=== PATIENT | male | born 1940 | race American Indian/Alaskan Native ===

== ENCOUNTER 2021-09-16 03:40 | Inpatient (IN) | payer MEDICAID, MEDICARE ==
--- NOTE | 2021-09-16 04:36 | Emergency Department Report ---
ED Chest Pain HPI - General Chief Complaint: Chest Pain Stated Complaint: CHEST PAIN Time Seen by Provider: 09/16/21 04:25 Source: patient Mode of arrival: Ambulatory Limitations: No Limitations - History of Present Illness Initial Comments: Chief complaint: Chest pain HPI: This is a 81-year-old male with history of hypertension and tobacco dependence who presents with chest pain right-sided. Hurts to cough. Hurts with inspiration. He has productive cough with sputum. He has had bilateral lower extremity swelling for quite some time. He is followed at [facility]. No known history of cardiac disease. Pain radiates to the right upper quadrant. MD Complaint: chest pain -: Gradual, days(s) (Yesterday) Onset: during rest Pain Location: right chest Pain Radiation: abdomen Severity: severe Severity scale (0 -10): 9 Quality: sharp Consistency: constant Worsens With: inspiration, other (Cough) Other Symptoms: other (Mild shortness of breath, bilateral lower extremity swelling) Treatments Prior to Arrival: other (Patient drove his private auto to the emergency department) - Related Data Home Medications Medication Instructions Recorded Confirmed Last Taken AtorvaSTATin [Lipitor] 20 mg PO QHS 09/16/21 09/16/21 09/15/21 Baclofen [Lioresal] 10 mg PO DAILY 09/16/21 09/16/21 09/15/21 Gabapentin 600 mg PO QHS 09/16/21 09/16/21 09/15/21 Gabapentin [Neurontin] 300 mg PO DAILY 09/16/21 09/16/21 09/15/21 Gabapentin [Neurontin] 600 mg PO QAM 09/16/21 09/16/21 09/15/21 hydroCHLOROthiazide [HCTZ] 25 mg PO QDAY 09/16/21 09/16/21 09/15/21 Allergies Allergy/AdvReac Type Severity Reaction Status Date / Time No Known Allergies Allergy Verified 09/16/21 04:48 Heart Score - HEART Score History: Slightly suspicious EKG: Non-specific Age: > 65 Risk factors: 1-2 risk factors Troponin: < normal limit HEART Score: 4 - EKG Read Time Time EKG Completed: 04:12 EKG Read Time: 04:15 - Critical Actions Critical Actions: 4-6 pts:12-16.6% risk of adverse cardiac event. Should be admitted ED Review of Systems ROS: Stated complaint: CHEST PAIN Other details as noted in HPI Comment: All other systems reviewed and negative Constitutional: denies: chills, fever, malaise Respiratory: cough, shortness of breath Cardiovascular: chest pain, edema Gastrointestinal: denies: abdominal pain, nausea, vomiting ED Past Medical Hx - Past Medical History Previous Medical History?: Yes Hx Hypertension: Yes - Surgical History Past Surgical History?: No - Family History Family history: other (Family history noncontributory to this presentation) - Social History Smoking Status: Current Every Day Smoker Substance Use Type: None - Medications Home Medications: Home Medications Medication Instructions Recorded Confirmed Last Taken Type AtorvaSTATin [Lipitor] 20 mg PO QHS 09/16/21 09/16/21 09/15/21 History Baclofen [Lioresal] 10 mg PO DAILY 09/16/21 09/16/21 09/15/21 History Gabapentin 600 mg PO QHS 09/16/21 09/16/21 09/15/21 History Gabapentin [Neurontin] 300 mg PO DAILY 09/16/21 09/16/21 09/15/21 History Gabapentin [Neurontin] 600 mg PO QAM 09/16/21 09/16/21 09/15/21 History hydroCHLOROthiazide [HCTZ] 25 mg PO QDAY 09/16/21 09/16/21 09/15/21 History ED Physical Exam - General Limitations: No Limitations General appearance: alert, in no apparent distress, other (Appears uncomfortable with coughing, no acute distress but appears in pain) - Head Head exam: Present: atraumatic, normocephalic - Eye Eye exam: Present: normal appearance - ENT ENT exam: Present: mucous membranes moist - Neck Neck exam: Present: normal inspection, full ROM - Respiratory Respiratory exam: Present: rales, rhonchi, decreased breath sounds. Absent: respiratory distress - Cardiovascular Cardiovascular Exam: Present: regular rate, irregular rhythm, normal heart sounds. Absent: systolic murmur, diastolic murmur, rubs, gallop - GI/Abdominal GI/Abdominal exam: Present: soft, normal bowel sounds. Absent: distended, tenderness, guarding, rebound - Rectal Rectal exam: Present: deferred - Extremities Exam Extremities exam: Present: pedal edema, other (4+ edema from knee to foot bilaterally) - Neurological Exam Neurological exam: Present: alert, oriented X3 - Psychiatric Psychiatric exam: Present: normal affect, normal mood - Skin Skin exam: Present: warm, dry, intact, normal color. Absent: rash ED Course Vital Signs 09/16/21 09/16/21 09/16/21 03:50 04:27 04:31 Temperature 98.4 F Pulse Rate 77 101 H Respiratory 16 18 10 L Rate Blood Pressure 95/51 Blood Pressure 129/91 [Right] O2 Sat by Pulse 98 89 Oximetry 09/16/21 09/16/21 09/16/21 04:42 04:45 05:01 Temperature Pulse Rate 77 89 86 Respiratory 17 18 19 Rate Blood Pressure 180/99 184/98 192/108 Blood Pressure 180/99 [Right] O2 Sat by Pulse 98 97 97 Oximetry 09/16/21 09/16/21 09/16/21 05:15 05:18 05:31 Temperature Pulse Rate 82 80 Respiratory 25 H 11 L 16 Rate Blood Pressure 199/100 183/101 Blood Pressure [Right] O2 Sat by Pulse 96 96 Oximetry 09/16/21 09/16/21 09/16/21 05:45 06:00 06:01 Temperature Pulse Rate 76 82 81 Respiratory 16 16 14 Rate Blood Pressure 179/94 169/101 Blood Pressure 179/94 199/100 [Right] O2 Sat by Pulse 96 96 96 Oximetry 09/16/21 09/16/21 09/16/21 06:15 06:31 06:45 Temperature Pulse Rate 77 72 80 Respiratory 15 15 14 Rate Blood Pressure 147/88 152/91 145/90 Blood Pressure [Right] O2 Sat by Pulse 96 95 96 Oximetry 09/16/21 09/16/21 09/16/21 07:01 07:15 07:31 Temperature Pulse Rate 83 80 88 Respiratory 15 15 16 Rate Blood Pressure 158/90 156/91 143/86 Blood Pressure [Right] O2 Sat by Pulse 96 93 93 Oximetry 09/16/21 09/16/21 09/16/21 07:57 08:01 08:15 Temperature Pulse Rate 73 76 70 Respiratory 25 H 14 13 Rate Blood Pressure 143/86 151/92 144/84 Blood Pressure [Right] O2 Sat by Pulse 92 97 97 Oximetry 09/16/21 09/16/21 09/16/21 08:31 08:45 09:01 Temperature Pulse Rate 77 67 67 Respiratory 13 14 14 Rate Blood Pressure 144/90 138/84 139/84 Blood Pressure [Right] O2 Sat by Pulse 98 98 97 Oximetry 09/16/21 09/16/21 09/16/21 09:15 09:31 09:45 Temperature Pulse Rate 71 72 71 Respiratory 16 12 16 Rate Blood Pressure 132/84 132/84 155/129 Blood Pressure [Right] O2 Sat by Pulse 97 97 93 Oximetry 09/16/21 09/16/21 09/16/21 09:56 10:01 10:15 Temperature 97.8 F Pulse Rate 67 81 Respiratory 14 15 Rate Blood Pressure 168/98 168/98 Blood Pressure [Right] O2 Sat by Pulse 97 Oximetry 09/16/21 09/16/21 09/16/21 10:31 10:45 11:01 Temperature Pulse Rate 64 66 69 Respiratory 13 12 13 Rate Blood Pressure 167/87 167/87 160/97 Blood Pressure [Right] O2 Sat by Pulse 97 97 97 Oximetry 09/16/21 09/16/21 09/16/21 11:11 11:21 11:55 Temperature 98.3 F Pulse Rate 73 107 H Respiratory 14 14 17 Rate Blood Pressure 160/97 160/97 184/101 Blood Pressure [Right] O2 Sat by Pulse 97 99 Oximetry 09/16/21 09/16/21 09/16/21 15:39 20:03 22:00 Temperature 98.7 F 100.1 F H Pulse Rate 83 91 H Respiratory 16 18 Rate Blood Pressure 155/94 124/79 Blood Pressure [Right] O2 Sat by Pulse 93 92 Oximetry 09/16/21 09/16/21 09/17/21 22:17 23:50 00:46 Temperature 99.8 F H Pulse Rate 80 80 Respiratory 20 Rate Blood Pressure 141/82 140/82 Blood Pressure [Right] O2 Sat by Pulse 96 91 Oximetry 09/17/21 09/17/21 09/17/21 03:47 07:57 09:59 Temperature 98.8 F 97.8 F Pulse Rate 70 Respiratory 18 18 Rate Blood Pressure 140/93 150/90 Blood Pressure [Right] O2 Sat by Pulse 93 94 Oximetry 09/17/21 09/17/21 09/17/21 10:00 10:18 10:38 Temperature 98.1 F Pulse Rate 101 H 76 Respiratory 18 Rate Blood Pressure 144/76 Blood Pressure [Right] O2 Sat by Pulse 96 Oximetry 09/17/21 09/17/21 09/17/21 14:38 15:37 19:23 Temperature 98.0 F 97.9 F Pulse Rate 68 56 L Respiratory 17 20 Rate Blood Pressure 148/77 127/80 Blood Pressure [Right] O2 Sat by Pulse 95 Oximetry 09/17/21 09/17/21 09/17/21 19:47 21:44 22:00 Temperature Pulse Rate 66 60 Respiratory Rate Blood Pressure Blood Pressure [Right] O2 Sat by Pulse 100 97 Oximetry 09/17/21 09/17/21 09/18/21 23:44 23:46 05:08 Temperature 97.5 F L 98.0 F Pulse Rate 70 70 58 L Respiratory 20 18 Rate Blood Pressure 143/78 143/78 129/76 Blood Pressure [Right] O2 Sat by Pulse 93 98 Oximetry 09/18/21 09/18/21 09/18/21 05:31 07:47 09:04 Temperature 98.7 F Pulse Rate 58 L 56 L Respiratory 16 Rate Blood Pressure 129/76 Blood Pressure 134/78 [Right] O2 Sat by Pulse 100 94 Oximetry 09/18/21 09/18/21 09/18/21 10:00 11:40 12:50 Temperature 98.1 F Pulse Rate 70 62 100 H Respiratory 18 Rate Blood Pressure 134/80 134/90 Blood Pressure [Right] O2 Sat by Pulse 98 91 Oximetry 09/18/21 09/18/21 09/18/21 12:51 15:43 19:18 Temperature 98.7 F Pulse Rate 62 70 71 Respiratory 18 Rate Blood Pressure 125/74 Blood Pressure [Right] O2 Sat by Pulse 93 Oximetry 09/18/21 09/18/21 09/18/21 19:24 22:00 23:19 Temperature 98.7 F 98.5 F Pulse Rate 70 61 Respiratory 16 16 Rate Blood Pressure 146/77 136/82 Blood Pressure [Right] O2 Sat by Pulse 94 95 95 Oximetry 09/19/21 09/19/21 00:30 05:52 Temperature 98.2 F Pulse Rate 63 64 Respiratory 18 Rate Blood Pressure 136/82 Blood Pressure 138/80 [Right] O2 Sat by Pulse 3 L Oximetry ED Medical Decision Making - Lab Data Result diagrams: 09/18/21 05:38 09/17/21 05:06 - EKG Data -: EKG Interpreted by Wi - EKG Data 09/16/21 04:35 EKG obtained 0 412 EKG interpreted by me Normal sinus rhythm rate 75 bpm PVCs present left axis deviation no ST elevation nonischemic T wave pattern - Radiology Data Radiology results: report reviewed Patient Name: CARLYN GUZMAN Gender: Male Date of : 1940 Home Phone: Referring Provider: JUAN MANUEL SCOTT Organization: [facility] Accession Number: [id number] Requested Date: September 16, 2021 04:31 Report Status: Final Requested Procedure: 1 Procedure Description: XR chest 1V ap Modality: XR Findings Reporting MD: Arie Zelaya Dictation Time: September 16, 2021 03:56 Esthetician And Manager Medical Spa: Not available Astro Technician Date: CHEST 1 VIEW INDICATION / CLINICAL INFORMATION: Chest Pain cough. COMPARISON: None available. FINDINGS: SUPPORT DEVICES: None. HEART / MEDIASTINUM: Heart size normal. Moderate ectasia of the thoracic aorta demonstrated. LUNGS / PLEURA: Airspace opacities right cardiophrenic angle. Lungs otherwise clear. No pneumothorax. ADDITIONAL FINDINGS: No significant additional findings. IMPRESSION: 1. Airspace opacity right cardiophrenic angle. Atelectasis and/or infection could be considered. Signer Name: Arie Zelaya II, MD Signed: 09/16/2021 3:56 AM Workstation Name: [id number] - Medical Decision Making This is a 81-year-old male with history of hypertension and tobacco use who presents with right pleuritic chest pain with cough. Chest radiograph confirms suspected pneumonia. Patient treated for community-acquired pneumonia with ceftriaxone azithromycin. Due to advanced age and comorbidities admitted to the hospital service. Heart score 4, do not suspect acute coronary syndrome. Patient has pleuritic chest pain with productive cough. Without significant leukocytosis and elevated D-dimer will rule out pulmonary embolism. Patient does have significant bilateral lower extremity swelling. Consideration congestive heart failure versus venous insufficiency. My colleague will determine appropriate disposition. Critical care attestation.: If time is entered above; I have spent that time in minutes in the direct care of this critically ill patient, excluding procedure time. ED Disposition Clinical Impression: Community acquired pneumonia, Acute pulmonary embolism Disposition: ADMITTED INPATIENT Is pt being admited?: No Does the pt Need Aspirin: No Condition: Stable
--- NOTE | 2021-09-16 05:00 | XRay Report ---
CHEST 1 VIEW INDICATION / CLINICAL INFORMATION: Chest Pain cough. COMPARISON: None available. FINDINGS: SUPPORT DEVICES: None. HEART / MEDIASTINUM: Heart size normal. Moderate ectasia of the thoracic aorta demonstrated. LUNGS / PLEURA: Airspace opacities right cardiophrenic angle. Lungs otherwise clear. No pneumothorax. ADDITIONAL FINDINGS: No significant additional findings. IMPRESSION: 1. Airspace opacity right cardiophrenic angle. Atelectasis and/or infection could be considered. Signer Name: Arie Zelaya II, MD Signed: 09/16/2021 4:56 AM Workstation Name: [id number]
[2021-09-16 05:21] LABS: Hematocrit 38.2 % (35.5-45.6); Hemoglobin 13.3 gm/dl (11.8-15.2); Mean Corpuscular HGB Conc 35 % (32-34); Mean Corpuscular Volume 88 fl (84-94); Platelet Count 214 K/mm3 (140-440); Red Blood Count 4.35 M/mm3 (3.65-5.03); Red Cell Distribution Width 14.5 % (13.2-15.2)
[2021-09-16] MEDS ORDERED: cefTRIAXone/NS 1 GM/50 ML 1 GM/50 ML BAG IV ONE (05:29)
[2021-09-16] MEDS ORDERED: AZITHROMYCIN/NS 500 MG/250 ML 500 MG/250 ML BAG IV ONE (05:29)
[2021-09-16] MEDS ORDERED: ACETAMINOPHEN 500 MG TAB PO ONE (05:32)
[2021-09-16 05:46] LABS: Alanine Aminotransferase 10 units/L (7-56); Albumin 3.8 g/dL (3.9-5); BUN/Creatinine Ratio 13; Blood Urea Nitrogen 14 mg/dL (9-20); Calcium 9.2 mg/dL (8.4-10.2); Hemolysis Index 5
[2021-09-16 06:26] LABS: Anisocytosis 1+; Basophils % (Manual) 0 % (0.0-1.8); Platelet Estimate Consistent w Auto; Total Cells Counted 100
--- NOTE | 2021-09-16 06:45 | Emergency Department Report ---
Blank Doc - Documentation Documentation: 0600-I assumed care from Dr. Lucero. CT angiogram is pending. 0645-CT angiogram was ordered. I did review the chart. Labs were noted. 0820-the radiologist called with a positive CT report. Patient has pulmonary emboli in the right mid and right lower lung mcnair along with the left upper lung field. None are central. There is also airspace disease concerning for pneumonia in the right lower lobe. There was no evidence of heart strain. This was the verbal report. We will recheck a room air saturation. Antibiotics have already been given. 0850-Case was discussed with the hospitalist. We agreed with admission. Patient has O2 saturations are 93% on room air which would constitute hypoxia. He has multiple PEs both right and left lung. There is concomitant pneumonia in the right lower lung. Due to the multiple issues and comorbid disease, we will proceed with admission. Heparin drip has been started.
--- NOTE | 2021-09-16 08:28 | Cat Scan Report ---
CTA CHEST WITH IV CONTRAST, 09/16/2021 INDICATION: Chest pain. TECHNIQUE: Axial CT images were obtained through the chest after injection of IV contrast. Coronal oblique 2-D reconstruction images were produced. 3 plane MIP reconstruction images were produced at an [employer] workstation. All CTs at this facility utilize dose reduction techniques including automated expos ure control, iterative reconstruction and weight based dosing when appropriate to reduce patient radi ation dose to as low as reasonable achievable. COMPARISON: Chest radiograph, 09/16/2021. No prior cross-sectional imaging is available for comparison. FINDINGS: Evaluation of the pulmonary arteries demonstrates multiple segmental and subsegmental filling defects extending to the right middle and right lower lobes. There are suspected subsegmental filling defect s also extending to the left upper lobe. No central filling defect is identified. The heart is normal in size. The thoracic aorta appears normal in caliber LUNGS: Evaluation of the lung parenchyma demonstrates patchy densities within the right lower lobe. T here is a background of emphysematous change. UPPER ABDOMEN: Limited imaging of the upper abdomen demonstrates several low-density lesions within t he liver, the largest of which measures 2.1 cm. There is a left renal cyst incompletely visualized me asuring at least 5.7 cm.. BONES AND SOFT TISSUES: No focal acute abnormality. IMPRESSION: 1. Evaluation is positive for pulmonary embolism involving the right middle and right lower lobes an d possibly the left upper lobe. 2. Patchy right lower lobe densities favored to represent pneumonia. 3. Low density hepatic lesions that are indeterminate on today's study. These may represent cysts. Critical findings of pulmonary embolism were discussed with Dr. Wright. CRITICAL RESULT: Time of Discovery (LOCAL GOVERNMENT LEGISLATOR/CDT): 7:15 AM Time of Communication (LOCAL GOVERNMENT LEGISLATOR/CDT): 7:23 AM Licensed Practitioner Receiving Report: Read-Back Performed: Yes. Signer Name: Bre Clemente MD Signed: 09/16/2021 8:23 AM Workstation Name: [email or web address]
[2021-09-16] MEDS ORDERED: HEPARIN 10,000 UNITS/10 ML VIAL IV PRN (08:51)
[2021-09-16] MEDS ORDERED: HEPARIN 10,000 UNITS/10 ML VIAL IV ONE (08:51)
[2021-09-16] MEDS ORDERED: ACETAMINOPHEN 325 MG TAB PO PRN ×2 (08:52)
[2021-09-16] MEDS ORDERED: NALOXONE 0.4 MG/1 ML INJ IV PRN (08:52)
[2021-09-16] MEDS ORDERED: NITROGLYCERIN 0.4 MG TAB SUBL SL PRN (08:52)
[2021-09-16] MEDS ORDERED: ALBUTEROL 2.5 MG/3 ML NEBU IH PRN (08:52)
[2021-09-16] MEDS ORDERED: MORPHINE 2 MG/1 ML INJ IV PRN (08:52)
[2021-09-16] MEDS ORDERED: traMADol 50 MG TAB PO PRN (08:52)
--- NOTE | 2021-09-16 08:59 | History and Physical Report ---
History of Present Illness Date of examination: 09/16/21 Date of admission: 09/16/21 Chief complaint: Chest pain History of present illness: This is a 81-year-old male with history of CHF, COPD, Severe arthritis, hypertension, Dementia with intermittent forgetfulness (according to the sister), Incontinence, and tobacco dependence who presents with chest pain right-sided. Hurts to cough. Hurts with inspiration. He has productive cough with sputum. He has had bilateral lower extremity swelling for quite some time. Most of the information is obtained from the ER physician most of the time I went to examine the patient he was beat sedated not sure if this is from medication although responsive to noxious stimuli. Did not exhibit severe shortness of breath or respiratory distress although the nurse reports that his surgery drops to the mid 80s when he is off oxygen support According to the family-He is followed at [facility] and his primary ca re physician is Dr. Flanagan Work-up in the ED found him to have "pulmonary emboli in the right mid and right lower lung mcnair along with the left upper lung field. None are central. There is also airspace disease concerning for pneumonia in the right lower lobe. There was no evidence of heart strain. This was the verbal report" Past History Past Medical History: COPD, heart failure, hypertension, hyperlipidemia, other (Dementia) Past Surgical History: No surgical history Social history: lives with family, full code Family history: no significant family history Medications and Allergies Allergies Allergy/AdvReac Type Severity Reaction Status Date / Time No Known Allergies Allergy Verified 09/16/21 04:48 Active Meds: Active Medications Acetaminophen (Acetaminophen 325 Mg Tab) 650 mg PO Q4H PRN PRN Reason: Pain MILD(1-3)/Fever >100.5/[place] Acetaminophen (Acetaminophen 325 Mg Tab) 650 mg PO Q6H PRN PRN Reason: Pain, Mild (1-3) Albuterol (Albuterol 2.5 Mg/3 Ml Nebu) 2.5 mg IH Q3HRT PRN PRN Reason: Shortness Of Breath Atorvastatin Calcium (Atorvastatin 40 Mg Tab) 40 mg PO QHS [facility] Baclofen (Baclofen 10 Mg Tab) 10 mg PO TID PRN PRN Reason: spasm Docusate Sodium (Docusate Sodium 100 Mg Cap) 100 mg PO BID [facility] Famotidine (Famotidine 20 Mg/2 Ml Inj) 20 mg IV BID [facility] Fluticasone Propionate (Fluticasone Propionate Nasal [place] 16 Gm) 100 mcg NS QDAY [facility] Heparin Sodium (Porcine) (Heparin 10,000 Units/10 Ml Vial) 5,400 unit 40 unit/kg (5400 unit) IV Q6H PRN PRN Reason: Anti-Xa Assay < 0.1 units/ml Hydrochlorothiazide (Hydrochlorothiazide 25 Mg Tab) 25 mg PO QDAY [facility] Heparin Sodium/Sodium Chloride (Heparin/ 0.45% Nacl-25,000 Unit/500 Ml) 25,000 unit in 500 mls @ 30 mls/hr IV TITR [facility]; Protocol Morphine Sulfate (Morphine 2 Mg/1 Ml Inj) 2 mg IV Q4H PRN PRN Reason: Pain, Moderate (4-6) Naloxone HCl (Naloxone 0.4 Mg/1 Ml Inj) 0.1 mg IV Q2MIN PRN PRN Reason: Res Rate </= 8 or 02 SAT < 92% Nitroglycerin (Nitroglycerin 0.4 Mg Tab Subl) 0.4 mg SL Q5M PRN PRN Reason: Chest Pain Ondansetron HCl (Ondansetron 4 Mg/2 Ml Inj) 4 mg IV Q8H PRN PRN Reason: Nausea And Vomiting Sodium Chloride (Sodium Chloride 0.9% 10 Ml Flush Syringe) 10 ml IV BID [facility] Sodium Chloride (Sodium Chloride 0.9% 10 Ml Flush Syringe) 10 ml IV PRN PRN PRN Reason: LINE FLUSH Sodium Chloride (Sodium Chloride 0.9% 10 Ml Flush Syringe) 10 ml IV PRN PRN PRN Reason: LINE FLUSH Tramadol HCl (Tramadol 50 Mg Tab) 50 mg PO Q6H PRN PRN Reason: Pain, Moderate (4-6) Review of Systems All systems: negative Cardiovascular: chest pain, shortness of breath, dyspnea on exertion Respiratory: cough, shortness of breath, dyspnea on exertion Exam - Physical Exam Narrative exam: VITAL SIGNS: Reviewed. GENERAL: The patient appears normally developed, appears sedated but responsive to verbal and noxious stimuli vital signs as documented. HEAD: No signs of head trauma. EYES: Pupils are equal. Extraocular motions intact. EARS: Hearing grossly intact. MOUTH: Oropharynx is normal. NECK: No adenopathy, no JVD. CHEST: Chest with clear breath sounds bilaterally. No wheezes, rales, or rhonchi. CARDIAC: Regular rate and rhythm. S1 and S2, without murmurs, gallops, or rubs. VASCULAR: No Edema. Peripheral pulses normal and equal in all extremities. ABDOMEN: Soft, non tender and non distended. No rebound or guarding, and no masses palpated. Bowel Sounds normal. MUSCULOSKELETAL: Good range of motion of all major joints. Extremities without clubbing, cyanosis or edema. NEUROLOGIC EXAM: Sedated, but responsive although could not verify orientation due to underlying dementia. Follows some command no focal sensory or strength deficits. PSYCHIATRIC: Mood unable to fully examine SKIN: detail exam as documented in skin assessment - Constitutional Vitals: Temp Pulse Resp BP Pulse Ox 98.4 F 82 16 199/100 96 09/16/21 03:50 09/16/21 06:00 09/16/21 06:00 09/16/21 06:00 09/16/21 06:00 HEART Score - HEART Score EKG: Non-specific Age: > 65 Risk factors: 1-2 risk factors Troponin: Troponin T < 0.010 ng/mL (0.00-0.029) 09/16/21 04:54 Troponin: < normal limit - Critical Actions Critical Actions: 4-6 pts:12-16.6% risk of adverse cardiac event. Should be admitted Results - Labs CBC & Chem 7: 09/16/21 09:34 09/16/21 09:34 Labs: Laboratory Last Values WBC 8.4 K/mm3 (4.5-11.0) 09/16/21 04:54 RBC 4.35 M/mm3 (3.65-5.03) 09/16/21 04:54 Hgb 13.3 gm/dl (11.8-15.2) 09/16/21 04:54 Hct 38.2 % (35.5-45.6) 09/16/21 04:54 MCV 88 fl (84-94) 09/16/21 04:54 MCH 31 pg (28-32) 09/16/21 04:54 MCHC 35 % (32-34) H 09/16/21 04:54 RDW 14.5 % (13.2-15.2) 09/16/21 04:54 Plt Count 214 K/mm3 (140-440) 09/16/21 04:54 Add Manual Diff Complete 09/16/21 04:54 Total Counted 100 09/16/21 04:54 Seg Neuts % (Manual) 59.0 % (40.0-70.0) 09/16/21 04:54 Band Neutrophils % 0 % 09/16/21 04:54 Lymphocytes % (Manual) 21.0 % (13.4-35.0) 09/16/21 04:54 Reactive Lymphs % (Man) 0 % 09/16/21 04:54 Monocytes % (Manual) 18.0 % (0.0-7.3) H 09/16/21 04:54 Eosinophils % (Manual) 2.0 % (0.0-4.3) 09/16/21 04:54 Basophils % (Manual) 0 % (0.0-1.8) 09/16/21 04:54 Metamyelocytes % 0 % 09/16/21 04:54 Myelocytes % 0 % 09/16/21 04:54 Promyelocytes % 0 % 09/16/21 04:54 Blast Cells % 0 % 09/16/21 04:54 Nucleated RBC % Not Reportable 09/16/21 04:54 Seg Neutrophils # Man 5.0 K/mm3 (1.8-7.7) 09/16/21 04:54 Band Neutrophils # 0.0 K/mm3 09/16/21 04:54 Lymphocytes # (Manual) 1.8 K/mm3 (1.2-5.4) 09/16/21 04:54 Abs React Lymphs (Man) 0.0 K/mm3 09/16/21 04:54 Monocytes # (Manual) 1.5 K/mm3 (0.0-0.8) H 09/16/21 04:54 Eosinophils # (Manual) 0.2 K/mm3 (0.0-0.4) 09/16/21 04:54 Basophils # (Manual) 0.0 K/mm3 (0.0-0.1) 09/16/21 04:54 Metamyelocytes # 0.0 K/mm3 09/16/21 04:54 Myelocytes # 0.0 K/mm3 09/16/21 04:54 Promyelocytes # 0.0 K/mm3 09/16/21 04:54 Blast Cells # 0.0 K/mm3 09/16/21 04:54 WBC Morphology Not Reportable 09/16/21 04:54 Hypersegmented Neuts Not Reportable 09/16/21 04:54 Hyposegmented Neuts Not Reportable 09/16/21 04:54 Hypogranular Neuts Not Reportable 09/16/21 04:54 Smudge Cells Not Reportable 09/16/21 04:54 Toxic Granulation Not Reportable 09/16/21 04:54 Toxic Vacuolation Not Reportable 09/16/21 04:54 Dohle Bodies Not Reportable 09/16/21 04:54 Pelger-Huet Anomaly Not Reportable 09/16/21 04:54 Nader Rods Not Reportable 09/16/21 04:54 Platelet Estimate Consistent w auto 09/16/21 04:54 Clumped Platelets Not Reportable 09/16/21 04:54 Plt Clumps, EDTA Not Reportable 09/16/21 04:54 Large Platelets Not Reportable 09/16/21 04:54 Giant Platelets Not Reportable 09/16/21 04:54 Platelet Satelliting Not Reportable 09/16/21 04:54 Plt Morphology Comment Not Reportable 09/16/21 04:54 RBC Morphology Not Reportable 09/16/21 04:54 Dimorphic RBCs Not Reportable 09/16/21 04:54 Polychromasia Not Reportable 09/16/21 04:54 Hypochromasia Not Reportable 09/16/21 04:54 Poikilocytosis Not Reportable 09/16/21 04:54 Anisocytosis 1+ 09/16/21 04:54 Microcytosis Not Reportable 09/16/21 04:54 Macrocytosis Not Reportable 09/16/21 04:54 Spherocytes Not Reportable 09/16/21 04:54 Pappenheimer Bodies Not Reportable 09/16/21 04:54 Sickle Cells Not Reportable 09/16/21 04:54 Target Cells Not Reportable 09/16/21 04:54 Tear Drop Cells Not Reportable 09/16/21 04:54 Ovalocytes Not Reportable 09/16/21 04:54 Helmet Cells Not Reportable 09/16/21 04:54 Vazquez-Rains Bodies Not Reportable 09/16/21 04:54 Hanahan Rings Not Reportable 09/16/21 04:54 [place] Cells Not Reportable 09/16/21 04:54 Bite Cells Not Reportable 09/16/21 04:54 Crenated Cell Not Reportable 09/16/21 04:54 Elliptocytes Not Reportable 09/16/21 04:54 Acanthocytes (Spur) Not Reportable 09/16/21 04:54 Rouleaux Not Reportable 09/16/21 04:54 Hemoglobin C Crystals Not Reportable 09/16/21 04:54 Schistocytes Not Reportable 09/16/21 04:54 Malaria parasites Not Reportable 09/16/21 04:54 Raymond Bodies Not Reportable 09/16/21 04:54 Hem Pathologist Commnt No 09/16/21 04:54 D-Dimer 2145.76 ng/mlDDU (0-234) H 09/16/21 04:54 Sodium 136 mmol/L (137-145) L 09/16/21 04:54 Potassium 3.9 mmol/L (3.6-5.0) 09/16/21 04:54 Chloride 94.7 mmol/L (98-107) L 09/16/21 04:54 Carbon Dioxide 28 mmol/L (22-30) 09/16/21 04:54 Anion Gap 17 mmol/L 09/16/21 04:54 BUN 14 mg/dL (9-20) 09/16/21 04:54 Creatinine 1.1 mg/dL (0.8-1.3) 09/16/21 04:54 Estimated GFR > 60 ml/min 09/16/21 04:54 BUN/Creatinine Ratio 13 % 09/16/21 04:54 Glucose 120 mg/dL (75-100) H 09/16/21 04:54 Calcium 9.2 mg/dL (8.4-10.2) 09/16/21 04:54 Total Bilirubin 0.40 mg/dL (0.1-1.2) 09/16/21 04:54 AST 14 units/L (5-40) 09/16/21 04:54 ALT 10 units/L (7-56) 09/16/21 04:54 Alkaline Phosphatase 93 units/L (35-129) 09/16/21 04:54 Troponin T < 0.010 ng/mL (0.00-0.029) 09/16/21 04:54 NT-Pro-B Natriuret Pep 177.4 pg/mL (0-900) 09/16/21 04:54 Total Protein 7.4 g/dL (6.3-8.2) 09/16/21 04:54 Albumin 3.8 g/dL (3.9-5) L 09/16/21 04:54 Albumin/Globulin Ratio 1.1 % 09/16/21 04:54 Assessment and Plan Assessment and plan: This is a 81-year-old male with history of CHF, COPD, Severe arthritis, hypertension, Dementia with intermittent forgetfulness (according to the sister), Incontinence, and tobacco dependence who presents with chest pain right-sided. Hurts to cough. Hurts with inspiration. He has productive cough with sputum. He has had bilateral lower extremity swelling for quite some time. Most of the information is obtained from the ER physician most of the time I went to examine the patient he was beat sedated not sure if this is from m edication although responsive to noxious stimuli. Did not exhibit severe shortness of breath or respiratory distress although the nurse reports that his surgery drops to the mid 80s when he is off oxygen support According to the family-He is followed at [facility] and his primary care physician is Dr. Flanagan Work-up in the ED found him to have "pulmonary emboli in the right mid and right lower lung mcnair along with the left upper lung field. None are central. There is also airspace disease concerning for pneumonia in the right lower lobe. There was no evidence of heart strain. This was the verbal report" Assessment Acute pulmonary emboli on the right mid and lower lung mcnair and left upper lung mcnair Hypoxic respiratory failure Congestive heart failure likely systolic chronic in nature Hypertension urgency Dementia with intermittent forgiveness chronic Severe arthritis Dementia with worsening acute encephalopathy above his baseline likely metabolic COPD with mild exacerbation secondary to pulmonary embolism Possible right lower lobe pneumonia Systemic inflammatory response syndrome Hyponatremia Plan Admit to telemetry Discussed with the ED physician patient has been started on heparin drip and on discharge probably can be converted to Eliquis Obtain cardiology and pulmonary consult Continue oxygen therapy We will try to obtain home medications. We will give patient a trial of Lasix 20 mg IV until patient seen by rubber stamp assembler I discussed with the sister the patient lives with the sister and also with an "uncle." Asbestos time in between has not had any recent long distance travel. We will check Doppler of bilateral lower extremity We will obtain an echocardiogram Based on clinical findings and improvement of respiratory status discharge can be planned DVT and GI prophylax Advance Directives: Yes Plan of care discussed with patient/family: Yes
[2021-09-16] MEDS ORDERED: ONDANSETRON 4 MG/2 ML INJ IV PRN (09:00)
[2021-09-16 09:47] LABS: Basophils % (Auto) 0.4 % (0.0-1.8); Eosinophils # (Auto) 0.1 K/mm3 (0.0-0.4); Eosinophils % (Auto) 0.9 % (0.0-4.3); Hematocrit 37.9 % (35.5-45.6); Hemoglobin 13.1 gm/dl (11.8-15.2); Lymphocytes # (Auto) 1.4 K/mm3 (1.2-5.4); Lymphocytes % (Auto) 16.3 % (13.4-35.0); Mean Corpuscular HGB Conc 35 % (32-34); Mean Corpuscular Volume 88 fl (84-94); Monocytes # (Auto) 1.2 K/mm3 (0.0-0.8); Monocytes % (Auto) 13.9 % (0.0-7.3); Platelet Count 200 K/mm3 (140-440); Red Blood Count 4.29 M/mm3 (3.65-5.03); Red Cell Distribution Width 14.5 % (13.2-15.2)
[2021-09-16] MEDS: HEPARIN/ 0.45% NACL DRIP 25,000 UNIT/500 ML BAG IV SCH (09:51)
[2021-09-16 09:59] LABS: INR 1.02 (0.87-1.13)
[2021-09-16 10:07] LABS: BUN/Creatinine Ratio 12; Blood Urea Nitrogen 12 mg/dL (9-20); Calcium 9.4 mg/dL (8.4-10.2); Hemolysis Index 3
[2021-09-16 10:57] LABS: Partial Thromboplastin Time 182.6 Sec. (24.2-36.6)
[2021-09-16] MEDS: FLUTICASONE PROPIONATE NASAL SPRAY 16 GM NS SCH (11:23)
[2021-09-16] MEDS: FAMOTIDINE 20 MG/2 ML INJ IV SCH ×2 (11:24→22:45)
[2021-09-16] MEDS: DOCUSATE SODIUM 100 MG CAP PO SCH ×2 (11:24→22:45)
[2021-09-16] MEDS: hydroCHLOROthiazide 25 MG TAB PO SCH (11:24)
--- NOTE | 2021-09-16 14:39 | Consultation ---
History of Present Illness Consult date: 09/16/21 Reason for consult: chest pain History of present illness: Chest pain History of present illness: This is a 81-year-old male with history of CHF, COPD, Severe arthritis, hypertension, Dementia with intermittent forgetfulness (according to the sister), Incontinence, and tobacco dependence who presents with chest pain right-sided. Hurts to cough. Hurts with inspiration. He has productive cough with sputum. He has had bilateral lower extremity swelling for quite some time. Most of the information is obtained from the ER physician most of the time I went to examine the patient he was beat sedated not sure if this is from medication although responsive to noxious stimuli. Did not exhibit severe shortness of breath or respiratory distress although the nurse reports that his surgery drops to the mid 80s when he is off oxygen support According to the family-He is followed at [facility] and his primary care physician is Dr. Flanagan Work-up in the ED found him to have "pulmonary emboli in the right mid and right lower lung mcnair along with the left upper lung field. None are central. There is also airspace disease concerning for pneumonia in the right lower lobe. There was no evidence of heart strain. This was the verbal report" Past History Past Medical History: COPD, heart failure, hypertension, hyperlipidemia, other (Dementia) Past Surgical History: No surgical history Social history: lives with family, full code Family history: no significant family history Medications and Allergies Allergies Allergy/AdvReac Type Severity Reaction Status Date / Time No Known Allergies Allergy Verified 09/16/21 04:48 Home Medications Medication Instructions Recorded Confirmed Last Taken Type AtorvaSTATin [Lipitor] 20 mg PO QHS 09/16/21 09/16/21 09/15/21 History Baclofen [Lioresal] 10 mg PO DAILY 09/16/21 09/16/21 09/15/21 History Gabapentin 600 mg PO QHS 09/16/21 09/16/21 09/15/21 History Gabapentin [Neurontin] 300 mg PO DAILY 09/16/21 09/16/21 09/15/21 History Gabapentin [Neurontin] 600 mg PO QAM 09/16/21 09/16/21 09/15/21 History hydroCHLOROthiazide [HCTZ] 25 mg PO QDAY 09/16/21 09/16/21 09/15/21 History Active Meds: Active Medications Acetaminophen (Acetaminophen 325 Mg Tab) 650 mg PO Q6H PRN PRN Reason: Pain, Mild (1-3) Albuterol (Albuterol 2.5 Mg/3 Ml Nebu) 2.5 mg IH Q3HRT PRN PRN Reason: Shortness Of Breath Amlodipine Besylate (Amlodipine 5 Mg Tab) 5 mg PO QDAY [facility] Atorvastatin Calcium (Atorvastatin 40 Mg Tab) 40 mg PO QHS [facility] Baclofen (Baclofen 10 Mg Tab) 10 mg PO TID PRN PRN Reason: spasm Diltiazem HCl (Diltiazem 60 Mg Tab) 60 mg PO Q6HR [facility] Docusate Sodium (Docusate Sodium 100 Mg Cap) 100 mg PO BID [facility] Last Admin: 09/16/21 11:24 Dose: 100 mg Famotidine (Famotidine 20 Mg/2 Ml Inj) 20 mg IV BID [facility] Last Admin: 09/16/21 11:24 Dose: 20 mg Fluticasone Propionate (Fluticasone Propionate Nasal [place] 16 Gm) 100 mcg NS QDAY [facility] Last Admin: 09/16/21 11:23 Dose: 100 mcg Hydrochlorothiazide (Hydrochlorothiazide 25 Mg Tab) 25 mg PO QDAY [facility] Last Admin: 09/16/21 11:24 Dose: 25 mg Heparin Sodium/Sodium Chloride (Heparin/ 0.45% Nacl-25,000 Unit/500 Ml) 25,000 unit in 500 mls @ 27 mls/hr IV TITR [facility]; Protocol Last Admin: 09/16/21 09:51 Dose: 1,350 units/hr, 27 mls/hr Morphine Sulfate (Morphine 2 Mg/1 Ml Inj) 2 mg IV Q4H PRN PRN Reason: Pain, Moderate (4-6) Naloxone HCl (Naloxone 0.4 Mg/1 Ml Inj) 0.1 mg IV Q2MIN PRN PRN Reason: Res Rate </= 8 or 02 SAT < 92% Nitroglycerin (Nitroglycerin 0.4 Mg Tab Subl) 0.4 mg SL Q5M PRN PRN Reason: Chest Pain Ondansetron HCl (Ondansetron 4 Mg/2 Ml Inj) 4 mg IV Q8H PRN PRN Reason: Nausea And Vomiting Sodium Chloride (Sodium Chloride 0.9% 10 Ml Flush Syringe) 10 ml IV BID [facility] Last Admin: 09/16/21 11:29 Dose: 10 ml Sodium Chloride (Sodium Chloride 0.9% 10 Ml Flush Syringe) 10 ml IV PRN PRN PRN Reason: LINE FLUSH Sodium Chloride (Sodium Chloride 0.9% 10 Ml Flush Syringe) 10 ml IV PRN PRN PRN Reason: LINE FLUSH Review of Systems Cardiovascular: shortness of breath Respiratory: pleurisy, pain Physical Examination Vital signs: Vital Signs Temp Pulse Resp BP Pulse Ox 98.4 F 77 16 129/91 98 09/16/21 03:50 09/16/21 03:50 09/16/21 03:50 09/16/21 03:50 09/16/21 03:50 General appearance: no acute distress, alert ENT: oropharynx moist, other (Poor dentition) Neck: supple, no JVD Ascultation: Bilateral: diminished breath sounds, rhonchi Cardiovascular: regular rate and rhythm Gastrointestinal: normoactive bowel sounds, soft, non-tender Extremities: no cyanosis, no edema Gait: other (Not tested) normal mental status mood appropriate Results - Laboratory Findings CBC and BMP: 09/16/21 09:34 09/16/21 09:34 PT/INR, D-dimer PT 14.5 Sec. (12.2-14.9) 09/16/21 09:34 INR 1.02 (0.87-1.13) 09/16/21 09:34 D-Dimer 2145.76 ng/mlDDU (0-234) H 09/16/21 04:54 Abnormal lab findings: Abnormal Labs 09/16/21 09/16/21 09/16/21 04:54 04:54 04:54 MCHC 35 H [place] % (Auto) [place] # (Auto) Monocytes % (Manual) 18.0 H Monocytes # (Manual) 1.5 H APTT D-Dimer 2145.76 H Sodium 136 L Chloride 94.7 L Glucose 120 H Albumin 3.8 L 09/16/21 09/16/21 09/16/21 09:34 09:34 09:34 MCHC 35 H [place] % (Auto) 13.9 H [place] # (Auto) 1.2 H Monocytes % (Manual) Monocytes # (Manual) APTT 182.6 H* D-Dimer Sodium 132 L Chloride 94.4 L Glucose 111 H Albumin - Diagnostic Findings CT scan - chest: image reviewed (Pulmonary embolism right middle and right lower lobe and possibly left upper lobe. Right lower lobe infiltrate) Assessment and Plan Impression: Acute bilateral pulmonary embolism Right lower lobe pneumonia versus infarct COPD with exacerbation Cigarette smoker Recommendation: Agree with echocardiogram. Agree with anticoagulation Consider venous Doppler studies of the lower extremity to rule out DVT PFT and pulmonary work-up as outpatient. Smoking cessation counseling provided.
[2021-09-16] MEDS: dilTIAZem 60 MG TAB PO SCH ×2 (18:06→18:07)
[2021-09-16] MEDS: amLODIPine 5 MG TAB PO SCH (18:07)
[2021-09-16] MEDS: cefTRIAXone/NS 1 GM/50 ML 1 GM/50 ML BAG IV SCH (18:07)
[2021-09-16] MEDS: AZITHROMYCIN/NS 500 MG/250 ML 500 MG/250 ML BAG IV SCH (18:07)
[2021-09-16] MEDS: methylPREDNISolone Sod Succinate 40 MG/1 ML INJ IV SCH (22:45)
[2021-09-16] MEDS: BACLOFEN 10 MG TAB PO PRN (22:45)
[2021-09-17] MEDS: dilTIAZem 60 MG TAB PO SCH ×5 (00:46→23:46)
[2021-09-17] MEDS: HEPARIN/ 0.45% NACL DRIP 25,000 UNIT/500 ML BAG IV SCH ×2 (03:10→21:52)
[2021-09-17 06:10] LABS: Basophils % (Auto) 0.2 % (0.0-1.8); Eosinophils % (Auto) 0.1 % (0.0-4.3); Hematocrit 37.5 % (35.5-45.6); Hemoglobin 12.6 gm/dl (11.8-15.2); Lymphocytes % (Auto) 13.3 % (13.4-35.0); Mean Corpuscular HGB Conc 34 % (32-34); Mean Corpuscular Volume 89 fl (84-94); Monocytes # (Auto) 0.2 K/mm3 (0.0-0.8); Monocytes % (Auto) 2.7 % (0.0-7.3); Platelet Count 226 K/mm3 (140-440); Red Blood Count 4.23 M/mm3 (3.65-5.03); Red Cell Distribution Width 14.7 % (13.2-15.2)
[2021-09-17 06:26] LABS: Alanine Aminotransferase 6 units/L (7-56); Albumin 3.3 g/dL (3.9-5); BUN/Creatinine Ratio 11; Blood Urea Nitrogen 11 mg/dL (9-20); Calcium 9.5 mg/dL (8.4-10.2); Hemolysis Index 10
[2021-09-17] MEDS: methylPREDNISolone Sod Succinate 40 MG/1 ML INJ IV SCH ×3 (07:12→21:46)
--- NOTE | 2021-09-17 09:56 | Progress Note ---
Assessment and Plan Assessment and plan: This is a 81-year-old male with history of CHF, COPD, Severe arthritis, hypertension, Dementia with intermittent forgetfulness (according to the sister), Incontinence, and tobacco dependence who presents with chest pain right-sided. Pt admitted with dx of pulmonary emboli in the right mid and right lower lung mcnair along with the left upper lung field. None are central. There is also airspace disease concerning for pneumonia in the right lower lobe. There was no evidence of heart strain. Acute pulmonary emboli on the right mid and lower lung mcnair and left upper lung mcnair Hypoxic respiratory failure Congestive heart failure likely systolic chronic in nature Hypertension urgency Dementia with intermittent forgiveness chronic Severe arthritis Dementia with worsening acute encephalopathy above his baseline likely metabolic COPD with mild exacerbation secondary to pulmonary embolism Possible right lower lobe pneumonia Systemic inflammatory response syndrome Hyponatremia Hospital course: 09/17/2021. Continue anticoagulation. Consider transition to Eliquis. Follow-up echocardiogram. Consider venous Doppler studies of the lower extremity to rule out DVT. Pulmonary to perform PFTs as an outpatient. Continue IV antibiotics for pneumonia. Continue IV steroids, bronchodilators/breathing treatments History Interval history: No new issues overnight. Hospitalist Physical - Constitutional Vitals: Temp Pulse Resp BP Pulse Ox 97.8 F 70 18 150/90 93 09/17/21 07:57 09/17/21 03:47 09/17/21 07:57 09/17/21 07:57 09/17/21 03:47 General appearance: Present: no acute distress, well-nourished - EENT Eyes: Present: PERRL, EOM intact ENT: hearing intact, clear oral mucosa, dentition normal - Neck Neck: Present: supple, normal ROM - Respiratory Respiratory effort: normal Respiratory: bilateral: CTA - Cardiovascular Rhythm: regular Heart Sounds: Present: S1 & S2. Absent: gallop, rub - Extremities Extremities: no ischemia, No edema, Full ROM - Abdominal General gastrointestinal: soft, non-tender, non-distended, normal bowel sounds - Integumentary Integumentary: Present: clear, warm, dry - Neurologic Neurologic: CNII-XII intact, moves all extremities HEART Score - HEART Score EKG: Non-specific Age: > 65 Risk factors: 1-2 risk factors Troponin: Troponin T < 0.010 ng/mL (0.00-0.029) 09/16/21 04:54 Troponin: < normal limit - Critical Actions Critical Actions: 4-6 pts:12-16.6% risk of adverse cardiac event. Should be admitted Results - Labs CBC & Chem 7: 09/17/21 05:06 09/17/21 05:06 Labs: Laboratory Last Values WBC 7.8 K/mm3 (4.5-11.0) 09/17/21 05:06 RBC 4.23 M/mm3 (3.65-5.03) 09/17/21 05:06 Hgb 12.6 gm/dl (11.8-15.2) 09/17/21 05:06 Hct 37.5 % (35.5-45.6) 09/17/21 05:06 MCV 89 fl (84-94) 09/17/21 05:06 MCH 30 pg (28-32) 09/17/21 05:06 MCHC 34 % (32-34) 09/17/21 05:06 RDW 14.7 % (13.2-15.2) 09/17/21 05:06 Plt Count 226 K/mm3 (140-440) 09/17/21 05:06 Lymph % (Auto) 13.3 % (13.4-35.0) L 09/17/21 05:06 [place] % (Auto) 2.7 % (0.0-7.3) 09/17/21 05:06 Eos % (Auto) 0.1 % (0.0-4.3) 09/17/21 05:06 Baso % (Auto) 0.2 % (0.0-1.8) 09/17/21 05:06 Lymph # (Auto) 1.0 K/mm3 (1.2-5.4) L 09/17/21 05:06 [place] # (Auto) 0.2 K/mm3 (0.0-0.8) 09/17/21 05:06 Eos # (Auto) 0.0 K/mm3 (0.0-0.4) 09/17/21 05:06 Baso # (Auto) 0.0 K/mm3 (0.0-0.1) 09/17/21 05:06 Add Manual Diff Complete 09/16/21 04:54 Total Counted 100 09/16/21 04:54 Seg Neutrophils % 83.7 % (40.0-70.0) H 09/17/21 05:06 Seg Neuts % (Manual) 59.0 % (40.0-70.0) 09/16/21 04:54 Band Neutrophils % 0 % 09/16/21 04:54 Lymphocytes % (Manual) 21.0 % (13.4-35.0) 09/16/21 04:54 Reactive Lymphs % (Man) 0 % 09/16/21 04:54 Monocytes % (Manual) 18.0 % (0.0-7.3) H 09/16/21 04:54 Eosinophils % (Manual) 2.0 % (0.0-4.3) 09/16/21 04:54 Basophils % (Manual) 0 % (0.0-1.8) 09/16/21 04:54 Metamyelocytes % 0 % 09/16/21 04:54 Myelocytes % 0 % 09/16/21 04:54 Promyelocytes % 0 % 09/16/21 04:54 Blast Cells % 0 % 09/16/21 04:54 Nucleated RBC % Not Reportable 09/16/21 04:54 Seg Neutrophils # 6.6 K/mm3 (1.8-7.7) 09/17/21 05:06 Seg Neutrophils # Man 5.0 K/mm3 (1.8-7.7) 09/16/21 04:54 Band Neutrophils # 0.0 K/mm3 09/16/21 04:54 Lymphocytes # (Manual) 1.8 K/mm3 (1.2-5.4) 09/16/21 04:54 Abs React Lymphs (Man) 0.0 K/mm3 09/16/21 04:54 Monocytes # (Manual) 1.5 K/mm3 (0.0-0.8) H 09/16/21 04:54 Eosinophils # (Manual) 0.2 K/mm3 (0.0-0.4) 09/16/21 04:54 Basophils # (Manual) 0.0 K/mm3 (0.0-0.1) 09/16/21 04:54 Metamyelocytes # 0.0 K/mm3 09/16/21 04:54 Myelocytes # 0.0 K/mm3 09/16/21 04:54 Promyelocytes # 0.0 K/mm3 09/16/21 04:54 Blast Cells # 0.0 K/mm3 09/16/21 04:54 WBC Morphology Not Reportable 09/16/21 04:54 Hypersegmented Neuts Not Reportable 09/16/21 04:54 Hyposegmented Neuts Not Reportable 09/16/21 04:54 Hypogranular Neuts Not Reportable 09/16/21 04:54 Smudge Cells Not Reportable 09/16/21 04:54 Toxic Granulation Not Reportable 09/16/21 04:54 Toxic Vacuolation Not Reportable 09/16/21 04:54 Dohle Bodies Not Reportable 09/16/21 04:54 Pelger-Huet Anomaly Not Reportable 09/16/21 04:54 Nader Rods Not Reportable 09/16/21 04:54 Platelet Estimate Consistent w auto 09/16/21 04:54 Clumped Platelets Not Reportable 09/16/21 04:54 Plt Clumps, EDTA Not Reportable 09/16/21 04:54 Large Platelets Not Reportable 09/16/21 04:54 Giant Platelets Not Reportable 09/16/21 04:54 Platelet Satelliting Not Reportable 09/16/21 04:54 Plt Morphology Comment Not Reportable 09/16/21 04:54 RBC Morphology Not Reportable 09/16/21 04:54 Dimorphic RBCs Not Reportable 09/16/21 04:54 Polychromasia Not Reportable 09/16/21 04:54 Hypochromasia Not Reportable 09/16/21 04:54 Poikilocytosis Not Reportable 09/16/21 04:54 Anisocytosis 1+ 09/16/21 04:54 Microcytosis Not Reportable 09/16/21 04:54 Macrocytosis Not Reportable 09/16/21 04:54 Spherocytes Not Reportable 09/16/21 04:54 Pappenheimer Bodies Not Reportable 09/16/21 04:54 Sickle Cells Not Reportable 09/16/21 04:54 Target Cells Not Reportable 09/16/21 04:54 Tear Drop Cells Not Reportable 09/16/21 04:54 Ovalocytes Not Reportable 09/16/21 04:54 Helmet Cells Not Reportable 09/16/21 04:54 [place] Bodies Not Reportable 09/16/21 04:54 [place] Rings Not Reportable 09/16/21 04:54 [place] Cells Not Reportable 09/16/21 04:54 Bite Cells Not Reportable 09/16/21 04:54 Crenated Cell Not Reportable 09/16/21 04:54 Elliptocytes Not Reportable 09/16/21 04:54 Acanthocytes (Spur) Not Reportable 09/16/21 04:54 Rouleaux Not Reportable 09/16/21 04:54 Hemoglobin C Crystals Not Reportable 09/16/21 04:54 Schistocytes Not Reportable 09/16/21 04:54 Malaria parasites Not Reportable 09/16/21 04:54 Raymond Bodies Not Reportable 09/16/21 04:54 Hem Pathologist Commnt No 09/16/21 04:54 PT 14.5 Sec. (12.2-14.9) 09/16/21 09:34 INR 1.02 (0.87-1.13) 09/16/21 09:34 APTT 182.6 Sec. (24.2-36.6) H* 09/16/21 09:34 D-Dimer 2145.76 ng/mlDDU (0-234) H 09/16/21 04:54 Heparin Anti-Xa Level 1.29 U.I./ml (0.3-0.7) H 09/17/21 07:15 Sodium 132 mmol/L (137-145) L 09/17/21 05:06 Potassium 3.6 mmol/L (3.6-5.0) 09/17/21 05:06 Chloride 94.2 mmol/L (98-107) L 09/17/21 05:06 Carbon Dioxide 26 mmol/L (22-30) 09/17/21 05:06 Anion Gap 15 mmol/L 09/17/21 05:06 BUN 11 mg/dL (9-20) 09/17/21 05:06 Creatinine 1.0 mg/dL (0.8-1.3) 09/17/21 05:06 Estimated GFR > 60 ml/min 09/17/21 05:06 BUN/Creatinine Ratio 11 % 09/17/21 05:06 Glucose 121 mg/dL (75-100) H 09/17/21 05:06 POC Glucose 127 mg/dL (70-105) H 09/17/21 07:46 Calcium 9.5 mg/dL (8.4-10.2) 09/17/21 05:06 Total Bilirubin 0.40 mg/dL (0.1-1.2) 09/17/21 05:06 AST 12 units/L (5-40) 09/17/21 05:06 ALT 6 units/L (7-56) L 09/17/21 05:06 Alkaline Phosphatase 63 units/L (35-129) 09/17/21 05:06 Troponin T < 0.010 ng/mL (0.00-0.029) 09/16/21 04:54 NT-Pro-B Natriuret Pep 177.4 pg/mL (0-900) 09/16/21 04:54 Total Protein 6.6 g/dL (6.3-8.2) 09/17/21 05:06 Albumin 3.3 g/dL (3.9-5) L 09/17/21 05:06 Albumin/Globulin Ratio 1.0 % 09/17/21 05:06 Plasma/Serum Alcohol < 0.01 % (0-0.07) 09/16/21 09:34 Ybarra/IV: Voiding Method Urinal Active Medications - Current Medications Current Medications: Generic Name Dose Route Start Last Admin Trade Name Freq PRN Reason Stop Dose Admin Acetaminophen 650 mg 09/16/21 08:52 Acetaminophen 325 Mg Tab PO Q6H PRN Pain, Mild (1-3) Albuterol 2.5 mg 09/16/21 08:52 Albuterol 2.5 Mg/3 Ml Nebu IH Q3HRT PRN Shortness Of Breath Amlodipine Besylate 5 mg 09/16/21 11:00 09/16/21 18:07 Amlodipine 5 Mg Tab PO 5 mg QDAY PEGGY Administration Atorvastatin Calcium 40 mg 09/16/21 22:00 09/16/21 22:45 Atorvastatin 40 Mg Tab PO 40 mg QHS PEGGY Administration Baclofen 10 mg 09/16/21 08:56 09/16/21 22:45 Baclofen 10 Mg Tab PO 10 mg TID PRN Administration spasm Diltiazem HCl 60 mg 09/16/21 12:00 09/17/21 07:12 Diltiazem 60 Mg Tab PO 60 mg Q6HR PEGGY Administration Docusate Sodium 100 mg 09/16/21 10:00 09/16/21 22:45 Docusate Sodium 100 Mg Cap PO 100 mg BID PEGGY Administration Famotidine 20 mg 09/16/21 10:00 09/16/21 22:45 Famotidine 20 Mg/2 Ml Inj IV 20 mg BID PEGGY Administration Fluticasone Propionate 100 mcg 09/16/21 10:00 09/16/21 11:23 Fluticasone Propionate Nasal [place] 16 Gm NS 100 mcg QDAY PEGGY Administration Hydrochlorothiazide 25 mg 09/16/21 10:00 09/16/21 11:24 Hydrochlorothiazide 25 Mg Tab PO 25 mg QDAY PEGGY Administration Heparin Sodium/Sodium Chloride 25,000 unit in 500 mls @ 27 mls/hr 09/16/21 09:00 09/17/21 03:10 Heparin/ 0.45% Nacl-25,000 Unit/500 Ml IV 1,700 units/hr TITR PEGGY 34 mls/hr Administration Protocol 1,350 UNITS/HR Ceftriaxone Sodium 1 gm in 50 mls @ 100 mls/hr 09/16/21 15:00 09/16/21 18:07 Rocephin/Ns 1 Gm/50 Ml IV 100 mls/hr Q24H PEGGY Administration Protocol Azithromycin 500 mg in 250 mls @ 250 mls/hr 09/16/21 15:00 09/16/21 18:07 Zithromax/Ns IV 250 mls/hr Q24H [facility] Administration Methylprednisolone Sodium Succinate 40 mg 09/16/21 22:00 09/17/21 07:12 Methylprednisolone Sod Succinate 40 Mg/1 Ml Inj IV 40 mg Q8HR PEGGY Administration Morphine Sulfate 2 mg 09/16/21 08:52 Morphine 2 Mg/1 Ml Inj IV Q4H PRN Pain, Moderate (4-6) Naloxone HCl 0.1 mg 09/16/21 08:52 Naloxone 0.4 Mg/1 Ml Inj IV Q2MIN PRN Res Rate </= 8 or 02 SAT < 92% Nitroglycerin 0.4 mg 09/16/21 08:52 Nitroglycerin 0.4 Mg Tab Subl SL Q5M PRN Chest Pain Ondansetron HCl 4 mg 09/16/21 09:00 Ondansetron 4 Mg/2 Ml Inj IV Q8H PRN Nausea And Vomiting Sodium Chloride 10 ml 09/16/21 10:00 09/16/21 22:45 Sodium Chloride 0.9% 10 Ml Flush Syringe IV 10 ml BID PEGGY Administration Sodium Chloride 10 ml 09/16/21 08:52 Sodium Chloride 0.9% 10 Ml Flush Syringe IV PRN PRN LINE FLUSH Sodium Chloride 10 ml 09/16/21 08:52 Sodium Chloride 0.9% 10 Ml Flush Syringe IV PRN PRN LINE FLUSH
[2021-09-17] MEDS: hydroCHLOROthiazide 25 MG TAB PO SCH (10:17)
[2021-09-17] MEDS: FLUTICASONE PROPIONATE NASAL SPRAY 16 GM NS SCH (10:17)
[2021-09-17] MEDS: FAMOTIDINE 20 MG/2 ML INJ IV SCH ×2 (10:17→21:46)
[2021-09-17] MEDS: amLODIPine 5 MG TAB PO SCH (10:18)
[2021-09-17] MEDS: DOCUSATE SODIUM 100 MG CAP PO SCH ×2 (10:18→21:46)
--- NOTE | 2021-09-17 10:56 | Consultation ---
History of Present Illness Consult date: 09/17/21 Consult reason: shortness of breath History of present illness: This is a 81-year-old male with history of CHF, COPD, Severe arthritis, hypertension, Dementia with intermittent forgetfulness (according to the sister), Incontinence, and tobacco dependence who presents with chest pain right-sided. Pt admitted with dx of pulmonary emboli in the right mid and right lower lung mcnair along with the left upper lung field. None are central. Ther e is also airspace disease concerning for pneumonia in the right lower lobe. There was no evidence of heart strain. Cardiology is being consulted due to concern for "CHF." His BNP level is normal and chest Xray does not reveal any significant pulmonary edema. Echocardiogram yesterday was technically limited. RV was poorly visualized but LVEF was normal. ECG reveals SR with incomplete RBBB, LAFB Past History Past Medical History: COPD, heart failure, hypertension, hyperlipidemia, other (Dementia) Past Surgical History: No surgical history Social history: lives with family, full code Family history: no significant family history Medications and Allergies Allergies Allergy/AdvReac Type Severity Reaction Status Date / Time No Known Allergies Allergy Verified 09/16/21 04:48 Home Medications Medication Instructions Recorded Confirmed Last Taken Type AtorvaSTATin [Lipitor] 20 mg PO QHS 09/16/21 09/16/21 09/15/21 History Baclofen [Lioresal] 10 mg PO DAILY 09/16/21 09/16/21 09/15/21 History Gabapentin 600 mg PO QHS 09/16/21 09/16/21 09/15/21 History Gabapentin [Neurontin] 300 mg PO DAILY 09/16/21 09/16/21 09/15/21 History Gabapentin [Neurontin] 600 mg PO QAM 09/16/21 09/16/21 09/15/21 History hydroCHLOROthiazide [HCTZ] 25 mg PO QDAY 09/16/21 09/16/21 09/15/21 History Active Meds: Active Medications Acetaminophen (Acetaminophen 325 Mg Tab) 650 mg PO Q6H PRN PRN Reason: Pain, Mild (1-3) Albuterol (Albuterol 2.5 Mg/3 Ml Nebu) 2.5 mg IH Q3HRT PRN PRN Reason: Shortness Of Breath Amlodipine Besylate (Amlodipine 5 Mg Tab) 5 mg PO QDAY PEGGY Last Admin: 09/17/21 10:18 Dose: 5 mg Atorvastatin Calcium (Atorvastatin 40 Mg Tab) 40 mg PO QHS [facility] Last Admin: 09/16/21 22:45 Dose: 40 mg Baclofen (Baclofen 10 Mg Tab) 10 mg PO TID PRN PRN Reason: spasm Last Admin: 09/16/21 22:45 Dose: 10 mg Diltiazem HCl (Diltiazem 60 Mg Tab) 60 mg PO Q6HR [facility] Last Admin: 09/17/21 07:12 Dose: 60 mg Docusate Sodium (Docusate Sodium 100 Mg Cap) 100 mg PO BID [facility] Last Admin: 09/17/21 10:18 Dose: 100 mg Famotidine (Famotidine 20 Mg/2 Ml Inj) 20 mg IV BID [facility] Last Admin: 09/17/21 10:17 Dose: 20 mg Fluticasone Propionate (Fluticasone Propionate Nasal [place] 16 Gm) 100 mcg NS QDAY [facility] Last Admin: 09/17/21 10:17 Dose: 100 mcg Hydrochlorothiazide (Hydrochlorothiazide 25 Mg Tab) 25 mg PO QDAY [facility] Last Admin: 09/17/21 10:17 Dose: 25 mg Heparin Sodium/Sodium Chloride (Heparin/ 0.45% Nacl-25,000 Unit/500 Ml) 25,000 unit in 500 mls @ 27 mls/hr IV TITR [facility]; Protocol Last Admin: 09/17/21 03:10 Dose: 1,700 units/hr, 34 mls/hr Ceftriaxone Sodium (Rocephin/Ns 1 Gm/50 Ml) 1 gm in 50 mls @ 100 mls/hr IV Q24H [facility]; Protocol Last Admin: 09/16/21 18:07 Dose: 100 mls/hr Azithromycin (Zithromax/Ns) 500 mg in 250 mls @ 250 mls/hr IV Q24H [facility] Last Admin: 09/16/21 18:07 Dose: 250 mls/hr Methylprednisolone Sodium Succinate (Methylprednisolone Sod Succinate 40 Mg/1 Ml Inj) 40 mg IV Q8HR [facility] Last Admin: 09/17/21 07:12 Dose: 40 mg Morphine Sulfate (Morphine 2 Mg/1 Ml Inj) 2 mg IV Q4H PRN PRN Reason: Pain, Moderate (4-6) Naloxone HCl (Naloxone 0.4 Mg/1 Ml Inj) 0.1 mg IV Q2MIN PRN PRN Reason: Res Rate </= 8 or 02 SAT < 92% Nitroglycerin (Nitroglycerin 0.4 Mg Tab Subl) 0.4 mg SL Q5M PRN PRN Reason: Chest Pain Ondansetron HCl (Ondansetron 4 Mg/2 Ml Inj) 4 mg IV Q8H PRN PRN Reason: Nausea And Vomiting Sodium Chloride (Sodium Chloride 0.9% 10 Ml Flush Syringe) 10 ml IV BID PEGGY Last Admin: 09/17/21 10:19 Dose: 10 ml Sodium Chloride (Sodium Chloride 0.9% 10 Ml Flush Syringe) 10 ml IV PRN PRN PRN Reason: LINE FLUSH Sodium Chloride (Sodium Chloride 0.9% 10 Ml Flush Syringe) 10 ml IV PRN PRN PRN Reason: LINE FLUSH Review of Systems All systems: negative (per hpi) Physical Examination Vital Signs Temp Pulse Resp BP Pulse Ox 98.4 F 77 16 129/91 98 09/16/21 03:50 09/16/21 03:50 09/16/21 03:50 09/16/21 03:50 09/16/21 03:50 General appearance: no acute distress Cardiac: Positive: Reg Rate and Rhythm Lungs: Positive: clear to auscultation Abdomen: Positive: Soft Extremities: Absent: edema Results 09/17/21 05:06 09/17/21 05:06 Cardiac Enzymes 09/17/21 Range/Units 05:06 AST 12 (5-40) units/L Coagulation 09/16/21 Range/Units 09:34 APTT 182.6 H* (24.2-36.6) Sec. CBC 09/17/21 Range/Units 05:06 WBC 7.8 (4.5-11.0) K/mm3 RBC 4.23 (3.65-5.03) M/mm3 Hgb 12.6 (11.8-15.2) gm/dl Hct 37.5 (35.5-45.6) % Plt Count 226 (140-440) K/mm3 Lymph # (Auto) 1.0 L (1.2-5.4) K/mm3 [place] # (Auto) 0.2 (0.0-0.8) K/mm3 Eos # (Auto) 0.0 (0.0-0.4) K/mm3 Baso # (Auto) 0.0 (0.0-0.1) K/mm3 Comprehensive Metabolic Panel 09/17/21 Range/Units 05:06 Sodium 132 L (137-145) mmol/L Potassium 3.6 (3.6-5.0) mmol/L Chloride 94.2 L (98-107) mmol/L Carbon Dioxide 26 (22-30) mmol/L BUN 11 (9-20) mg/dL Creatinine 1.0 (0.8-1.3) mg/dL Glucose 121 H (75-100) mg/dL Calcium 9.5 (8.4-10.2) mg/dL AST 12 (5-40) units/L ALT 6 L (7-56) units/L Alkaline Phosphatase 63 (35-129) units/L Total Protein 6.6 (6.3-8.2) g/dL Albumin 3.3 L (3.9-5) g/dL Assessment and Plan Acute bilateral pulmonary embolism Right lower lobe pneumonia versus infarct COPD with exacerbation Cigarette smoker No clinical or biochemical evidence for CHF Recommend: Continue anticoagulation and ultimately transition to oral anticoagulant Pulmonary evaluation and treatment ongoing.
--- NOTE | 2021-09-17 11:49 | Electrocardiograph Report ---
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
--- NOTE | 2021-09-17 11:52 | Electrocardiograph Report ---
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
--- NOTE | 2021-09-17 11:56 | Electrocardiograph Report ---
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
--- NOTE | 2021-09-17 12:10 | Progress Note ---
Assessment and Plan Impression: Acute bilateral pulmonary embolism Right lower lobe pneumonia versus infarct COPD with exacerbation No evidence of CHF on echocardiogram Cigarette smoker Recommendation: Rule out right ventricular strain from pulmonary embolism right ventricle was not clearly visualized on echocardiogram.. Agree with anticoagulation Consider venous Doppler studies of the lower extremity to rule out DVT PFT and pulmonary work-up as outpatient. Smoking cessation counseling provided. Continue with antibiotic and bronchodilator therapy Full pulmonary work-up as outpatient Subjective Date of service: 09/17/21 Interval history: Patient feeling much better. Right-sided chest pain seems to have resolved. Breathing is stable. Objective Vital Signs - 12hr 09/17/21 09/17/21 09/17/21 00:46 03:47 07:57 Temperature 98.8 F 97.8 F Pulse Rate 80 70 Respiratory 18 18 Rate Blood Pressure 140/82 140/93 150/90 O2 Sat by Pulse 93 Oximetry 09/17/21 09/17/21 09/17/21 09:59 10:18 10:38 Temperature 98.1 F Pulse Rate 76 Respiratory 18 Rate Blood Pressure 144/76 O2 Sat by Pulse 94 Oximetry Constitutional: no acute distress, alert ENT: oropharynx moist, other (Poor dentition) Neck: supple, no JVD Ascultation: Bilateral: diminished breath sounds, rhonchi Cardiovascular: regular rate and rhythm Gastrointestinal: normoactive bowel sounds, soft, non-tender Extremities: no cyanosis, no edema Neurologic: normal mental status Psychiatric: mood appropriate CBC and BMP: 09/17/21 05:06 09/17/21 05:06 ABG, PT/INR, D-dimer: PT/INR, D-dimer PT 14.5 Sec. (12.2-14.9) 09/16/21 09:34 INR 1.02 (0.87-1.13) 09/16/21 09:34 D-Dimer 2145.76 ng/mlDDU (0-234) H 09/16/21 04:54 Abnormal lab findings: Abnormal Labs 09/16/21 09/16/21 09/16/21 04:54 04:54 04:54 MCHC 35 H Lymph % (Auto) [place] % (Auto) Lymph # (Auto) [place] # (Auto) Seg Neutrophils % Monocytes % (Manual) 18.0 H Monocytes # (Manual) 1.5 H APTT D-Dimer 2145.76 H Heparin Anti-Xa Level Sodium 136 L Chloride 94.7 L Glucose 120 H POC Glucose ALT Albumin 3.8 L 09/16/21 09/16/21 09/16/21 09:34 09:34 09:34 MCHC 35 H Lymph % (Auto) [place] % (Auto) 13.9 H Lymph # (Auto) [place] # (Auto) 1.2 H Seg Neutrophils % Monocytes % (Manual) Monocytes # (Manual) APTT 182.6 H* D-Dimer Heparin Anti-Xa Level Sodium 132 L Chloride 94.4 L Glucose 111 H POC Glucose ALT Albumin 09/16/21 09/16/21 09/16/21 15:25 15:38 22:57 MCHC Lymph % (Auto) [place] % (Auto) Lymph # (Auto) [place] # (Auto) Seg Neutrophils % Monocytes % (Manual) Monocytes # (Manual) APTT D-Dimer Heparin Anti-Xa Level 0.15 L 0.81 H Sodium Chloride Glucose POC Glucose 116 H ALT Albumin 09/17/21 09/17/21 09/17/21 05:06 05:06 07:15 MCHC Lymph % (Auto) 13.3 L [place] % (Auto) Lymph # (Auto) 1.0 L [place] # (Auto) Seg Neutrophils % 83.7 H Monocytes % (Manual) Monocytes # (Manual) APTT D-Dimer Heparin Anti-Xa Level 1.29 H Sodium 132 L Chloride 94.2 L Glucose 121 H POC Glucose ALT 6 L Albumin 3.3 L 09/17/21 09/17/21 07:46 10:37 MCHC Lymph % (Auto) [place] % (Auto) Lymph # (Auto) [place] # (Auto) Seg Neutrophils % Monocytes % (Manual) Monocytes # (Manual) APTT D-Dimer Heparin Anti-Xa Level Sodium Chloride Glucose POC Glucose 127 H 212 H ALT Albumin
[2021-09-17] MEDS ORDERED: HEPARIN 10,000 UNITS/10 ML VIAL IV PRN (12:32)
[2021-09-17] MEDS: cefTRIAXone/NS 1 GM/50 ML 1 GM/50 ML BAG IV SCH (14:38)
[2021-09-17] MEDS: AZITHROMYCIN/NS 500 MG/250 ML 500 MG/250 ML BAG IV SCH (14:38)
[2021-09-18] MEDS: dilTIAZem 60 MG TAB PO SCH ×3 (05:31→19:18)
[2021-09-18] MEDS: methylPREDNISolone Sod Succinate 40 MG/1 ML INJ IV SCH ×3 (05:32→22:25)
[2021-09-18 06:32] LABS: Hemoglobin 12.2 gm/dl (11.8-15.2)
--- NOTE | 2021-09-18 08:29 | Progress Note ---
Assessment and Plan Assessment and plan: This is a 81-year-old male with history of CHF, COPD, Severe arthritis, hypertension, Dementia with intermittent forgetfulness (according to the sister), Incontinence, and tobacco dependence who presents with chest pain right-sided. Pt admitted with dx of pulmonary emboli in the right mid and right lower lung mcnair along with the left upper lung field. None are central. There is also airspace disease concerning for pneumonia in the right lower lobe. There was no evidence of heart strain. Acute pulmonary emboli on the right mid and lower lung mcnair and left upper lung mcnair Acute hypoxic respiratory failure Congestive heart failure likely systolic chronic in nature Hypertension urgency Dementia with intermittent forgiveness chronic Severe arthritis Dementia with worsening acute encephalopathy above his baseline likely metabolic COPD with mild exacerbation secondary to pulmonary embolism Possible right lower lobe pneumonia Systemic inflammatory response syndrome Hyponatremia Hospital course: 09/17/2021. Continue anticoagulation. Consider transition to Eliquis. Follow-up echocardiogram. Consider venous Doppler studies of the lower extremity to rule out DVT. Pulmonary to perform PFTs as an outpatient. Continue IV antibiotics for pneumonia. Continue IV steroids, bronchodilators/breathing treatments 09/18/2021. Echocardiogram reveals left ventricle with normal size but mild concentric left ventricular hypertrophy. Left ventricular systolic function is normal with EF of 55-60%. Right ventricle not well visualized but no mention of right heart strain. Continue with antibiotic and bronchodilator therapy. History Interval history: No new issues overnight. Hospitalist Physical - Constitutional Vitals: Temp Pulse Resp BP Pulse Ox 98.0 F 58 L 18 129/76 100 09/18/21 05:08 09/18/21 05:31 09/18/21 05:08 09/18/21 05:31 09/18/21 07:47 General appearance: Present: no acute distress - EENT Eyes: Present: PERRL, EOM intact ENT: hearing intact, clear oral mucosa, dentition normal - Neck Neck: Present: supple, normal ROM - Respiratory Respiratory effort: normal Respiratory: bilateral: CTA - Cardiovascular Rhythm: regular Heart Sounds: Present: S1 & S2. Absent: gallop, rub - Extremities Extremities: no ischemia, No edema, Full ROM - Abdominal General gastrointestinal: soft, non-tender, non-distended, normal bowel sounds - Integumentary Integumentary: Present: clear, warm, dry - Neurologic Neurologic: CNII-XII intact, moves all extremities HEART Score - HEART Score EKG: Non-specific Age: > 65 Risk factors: 1-2 risk factors Troponin: Troponin T < 0.010 ng/mL (0.00-0.029) 09/16/21 04:54 Troponin: < normal limit - Critical Actions Critical Actions: 4-6 pts:12-16.6% risk of adverse cardiac event. Should be admitted Results - Labs CBC & Chem 7: 09/18/21 05:38 09/17/21 05:06 Labs: Laboratory Last Values WBC 7.8 K/mm3 (4.5-11.0) 09/17/21 05:06 RBC 4.23 M/mm3 (3.65-5.03) 09/17/21 05:06 Hgb 12.2 gm/dl (11.8-15.2) 09/18/21 05:38 Hct 36.0 % (35.5-45.6) 09/18/21 05:38 MCV 89 fl (84-94) 09/17/21 05:06 MCH 30 pg (28-32) 09/17/21 05:06 MCHC 34 % (32-34) 09/17/21 05:06 RDW 14.7 % (13.2-15.2) 09/17/21 05:06 Plt Count 234 K/mm3 (140-440) 09/18/21 05:38 Lymph % (Auto) 13.3 % (13.4-35.0) L 09/17/21 05:06 [place] % (Auto) 2.7 % (0.0-7.3) 09/17/21 05:06 Eos % (Auto) 0.1 % (0.0-4.3) 09/17/21 05:06 Baso % (Auto) 0.2 % (0.0-1.8) 09/17/21 05:06 Lymph # (Auto) 1.0 K/mm3 (1.2-5.4) L 09/17/21 05:06 [place] # (Auto) 0.2 K/mm3 (0.0-0.8) 09/17/21 05:06 Eos # (Auto) 0.0 K/mm3 (0.0-0.4) 09/17/21 05:06 Baso # (Auto) 0.0 K/mm3 (0.0-0.1) 09/17/21 05:06 Add Manual Diff Complete 09/16/21 04:54 Total Counted 100 09/16/21 04:54 Seg Neutrophils % 83.7 % (40.0-70.0) H 09/17/21 05:06 Seg Neuts % (Manual) 59.0 % (40.0-70.0) 09/16/21 04:54 Band Neutrophils % 0 % 09/16/21 04:54 Lymphocytes % (Manual) 21.0 % (13.4-35.0) 09/16/21 04:54 Reactive Lymphs % (Man) 0 % 09/16/21 04:54 Monocytes % (Manual) 18.0 % (0.0-7.3) H 09/16/21 04:54 Eosinophils % (Manual) 2.0 % (0.0-4.3) 09/16/21 04:54 Basophils % (Manual) 0 % (0.0-1.8) 09/16/21 04:54 Metamyelocytes % 0 % 09/16/21 04:54 Myelocytes % 0 % 09/16/21 04:54 Promyelocytes % 0 % 09/16/21 04:54 Blast Cells % 0 % 09/16/21 04:54 Nucleated RBC % Not Reportable 09/16/21 04:54 Seg Neutrophils # 6.6 K/mm3 (1.8-7.7) 09/17/21 05:06 Seg Neutrophils # Man 5.0 K/mm3 (1.8-7.7) 09/16/21 04:54 Band Neutrophils # 0.0 K/mm3 09/16/21 04:54 Lymphocytes # (Manual) 1.8 K/mm3 (1.2-5.4) 09/16/21 04:54 Abs React Lymphs (Man) 0.0 K/mm3 09/16/21 04:54 Monocytes # (Manual) 1.5 K/mm3 (0.0-0.8) H 09/16/21 04:54 Eosinophils # (Manual) 0.2 K/mm3 (0.0-0.4) 09/16/21 04:54 Basophils # (Manual) 0.0 K/mm3 (0.0-0.1) 09/16/21 04:54 Metamyelocytes # 0.0 K/mm3 09/16/21 04:54 Myelocytes # 0.0 K/mm3 09/16/21 04:54 Promyelocytes # 0.0 K/mm3 09/16/21 04:54 Blast Cells # 0.0 K/mm3 09/16/21 04:54 WBC Morphology Not Reportable 09/16/21 04:54 Hypersegmented Neuts Not Reportable 09/16/21 04:54 Hyposegmented Neuts Not Reportable 09/16/21 04:54 Hypogranular Neuts Not Reportable 09/16/21 04:54 Smudge Cells Not Reportable 09/16/21 04:54 Toxic Granulation Not Reportable 09/16/21 04:54 Toxic Vacuolation Not Reportable 09/16/21 04:54 Dohle Bodies Not Reportable 09/16/21 04:54 Pelger-Huet Anomaly Not Reportable 09/16/21 04:54 Nader Rods Not Reportable 09/16/21 04:54 Platelet Estimate Consistent w auto 09/16/21 04:54 Clumped Platelets Not Reportable 09/16/21 04:54 Plt Clumps, EDTA Not Reportable 09/16/21 04:54 Large Platelets Not Reportable 09/16/21 04:54 Giant Platelets Not Reportable 09/16/21 04:54 Platelet Satelliting Not Reportable 09/16/21 04:54 Plt Morphology Comment Not Reportable 09/16/21 04:54 RBC Morphology Not Reportable 09/16/21 04:54 Dimorphic RBCs Not Reportable 09/16/21 04:54 Polychromasia Not Reportable 09/16/21 04:54 Hypochromasia Not Reportable 09/16/21 04:54 Poikilocytosis Not Reportable 09/16/21 04:54 Anisocytosis 1+ 09/16/21 04:54 Microcytosis Not Reportable 09/16/21 04:54 Macrocytosis Not Reportable 09/16/21 04:54 Spherocytes Not Reportable 09/16/21 04:54 Pappenheimer Bodies Not Reportable 09/16/21 04:54 Sickle Cells Not Reportable 09/16/21 04:54 Target Cells Not Reportable 09/16/21 04:54 Tear Drop Cells Not Reportable 09/16/21 04:54 Ovalocytes Not Reportable 09/16/21 04:54 Helmet Cells Not Reportable 09/16/21 04:54 Vazquez-[place] Bodies Not Reportable 09/16/21 04:54 [place] Rings Not Reportable 09/16/21 04:54 [place] Cells Not Reportable 09/16/21 04:54 Bite Cells Not Reportable 09/16/21 04:54 Crenated Cell Not Reportable 09/16/21 04:54 Elliptocytes Not Reportable 09/16/21 04:54 Acanthocytes (Spur) Not Reportable 09/16/21 04:54 Rouleaux Not Reportable 09/16/21 04:54 Hemoglobin C Crystals Not Reportable 09/16/21 04:54 Schistocytes Not Reportable 09/16/21 04:54 Malaria parasites Not Reportable 09/16/21 04:54 [place] Bodies Not Reportable 09/16/21 04:54 Hem Pathologist Commnt No 09/16/21 04:54 PT 14.5 Sec. (12.2-14.9) 09/16/21 09:34 INR 1.02 (0.87-1.13) 09/16/21 09:34 APTT 182.6 Sec. (24.2-36.6) H* 09/16/21 09:34 D-Dimer 2145.76 ng/mlDDU (0-234) H 09/16/21 04:54 Heparin Anti-Xa Level 0.44 U.I./ml (0.3-0.7) 09/17/21 14:30 Sodium 132 mmol/L (137-145) L 09/17/21 05:06 Potassium 3.6 mmol/L (3.6-5.0) 09/17/21 05:06 Chloride 94.2 mmol/L (98-107) L 09/17/21 05:06 Carbon Dioxide 26 mmol/L (22-30) 09/17/21 05:06 Anion Gap 15 mmol/L 09/17/21 05:06 BUN 11 mg/dL (9-20) 09/17/21 05:06 Creatinine 1.0 mg/dL (0.8-1.3) 09/17/21 05:06 Estimated GFR > 60 ml/min 09/17/21 05:06 BUN/Creatinine Ratio 11 % 09/17/21 05:06 Glucose 121 mg/dL (75-100) H 09/17/21 05:06 POC Glucose 135 mg/dL (70-105) H 09/18/21 07:39 Calcium 9.5 mg/dL (8.4-10.2) 09/17/21 05:06 Total Bilirubin 0.40 mg/dL (0.1-1.2) 09/17/21 05:06 AST 12 units/L (5-40) 09/17/21 05:06 ALT 6 units/L (7-56) L 09/17/21 05:06 Alkaline Phosphatase 63 units/L (35-129) 09/17/21 05:06 Troponin T < 0.010 ng/mL (0.00-0.029) 09/16/21 04:54 NT-Pro-B Natriuret Pep 177.4 pg/mL (0-900) 09/16/21 04:54 Total Protein 6.6 g/dL (6.3-8.2) 09/17/21 05:06 Albumin 3.3 g/dL (3.9-5) L 09/17/21 05:06 Albumin/Globulin Ratio 1.0 % 09/17/21 05:06 Plasma/Serum Alcohol < 0.01 % (0-0.07) 09/16/21 09:34 Ybarra/IV: Voiding Method Urinal Active Medications - Current Medications Current Medications: Generic Name Dose Route Start Last Admin Trade Name Freq PRN Reason Stop Dose Admin Acetaminophen 650 mg 09/16/21 08:52 Acetaminophen 325 Mg Tab PO Q6H PRN Pain, Mild (1-3) Albuterol 2.5 mg 09/16/21 08:52 Albuterol 2.5 Mg/3 Ml Nebu IH Q3HRT PRN Shortness Of Breath Amlodipine Besylate 5 mg 09/16/21 11:00 09/17/21 10:18 Amlodipine 5 Mg Tab PO 5 mg QDAY PEGGY Administration Atorvastatin Calcium 40 mg 09/16/21 22:00 09/17/21 21:46 Atorvastatin 40 Mg Tab PO 40 mg QHS PEGGY Administration Azithromycin 500 mg 09/18/21 22:00 Azithromycin 250 Mg Tab PO 09/20/21 22:01 Q24H PEGGY Protocol Baclofen 10 mg 09/16/21 08:56 09/16/21 22:45 Baclofen 10 Mg Tab PO 10 mg TID PRN Administration spasm Diltiazem HCl 60 mg 09/16/21 12:00 09/18/21 05:31 Diltiazem 60 Mg Tab PO 60 mg Q6HR PEGGY Administration Docusate Sodium 100 mg 09/16/21 10:00 09/17/21 21:46 Docusate Sodium 100 Mg Cap PO 100 mg BID PEGGY Administration Famotidine 20 mg 09/16/21 10:00 09/17/21 21:46 Famotidine 20 Mg/2 Ml Inj IV 20 mg BID PEGGY Administration Fluticasone Propionate 100 mcg 09/16/21 10:00 09/17/21 10:17 Fluticasone Propionate Nasal [place] 16 Gm NS 100 mcg [facility] Administration Heparin Sodium (Porcine) 3,800 unit 09/17/21 12:32 Heparin 10,000 Units/10 Ml Vial 40 unit/kg (3800 unit) IV Q6H PRN Anti-Xa Assay < 0.1 units/ml Hydrochlorothiazide 25 mg 09/16/21 10:00 09/17/21 10:17 Hydrochlorothiazide 25 Mg Tab PO 25 mg [facility] Administration Heparin Sodium/Sodium Chloride 25,000 unit in 500 mls @ 27 mls/hr 09/16/21 09:00 09/18/21 08:03 Heparin/ 0.45% Nacl-25,000 Unit/500 Ml IV 1,500 units/hr TITR PEGGY 30 mls/hr Titration Protocol 1,350 UNITS/HR Ceftriaxone Sodium 2 gm in 100 mls @ 200 mls/hr 09/18/21 10:00 Rocephin/Ns 2 Gm/100 Ml IV 09/20/21 10:29 Q24H [facility] Protocol Methylprednisolone Sodium Succinate 40 mg 09/16/21 22:00 09/18/21 05:32 Methylprednisolone Sod Succinate 40 Mg/1 Ml Inj IV 40 mg Q8HR PEGGY Administration Morphine Sulfate 2 mg 09/16/21 08:52 Morphine 2 Mg/1 Ml Inj IV Q4H PRN Pain, Moderate (4-6) Naloxone HCl 0.1 mg 09/16/21 08:52 Naloxone 0.4 Mg/1 Ml Inj IV Q2MIN PRN Res Rate </= 8 or 02 SAT < 92% Nitroglycerin 0.4 mg 09/16/21 08:52 Nitroglycerin 0.4 Mg Tab Subl SL Q5M PRN Chest Pain Ondansetron HCl 4 mg 09/16/21 09:00 Ondansetron 4 Mg/2 Ml Inj IV Q8H PRN Nausea And Vomiting Sodium Chloride 10 ml 09/16/21 10:00 09/17/21 21:46 Sodium Chloride 0.9% 10 Ml Flush Syringe IV 10 ml BID PEGGY Administration Sodium Chloride 10 ml 09/16/21 08:52 Sodium Chloride 0.9% 10 Ml Flush Syringe IV PRN PRN LINE FLUSH Sodium Chloride 10 ml 09/16/21 08:52 Sodium Chloride 0.9% 10 Ml Flush Syringe IV PRN PRN LINE FLUSH
--- NOTE | 2021-09-18 12:12 | Progress Note ---
Assessment and Plan 81 y/o male with pulmonary emboli. 1. Suggest starting oral anticoagulation 2. Despite inconclusive Echo, appears to be improving. Would not wait on orals just from this. 3. Will need hypercoag work up, but this could be done as an outpatient, needs heme follow up. 4. Please obtain ambulatory pulse ox prior to discharge. Subjective Date of service: 09/18/21 Interval history: Patient weaned to room air. No complaints. Still on Heparin drip. Objective Vital Signs - 12hr 09/18/21 09/18/21 09/18/21 05:08 05:31 07:47 Temperature 98.0 F Pulse Rate 58 L 58 L Respiratory 18 Rate Blood Pressure 129/76 129/76 Blood Pressure [Right] O2 Sat by Pulse 98 100 Oximetry 09/18/21 09:04 Temperature 98.7 F Pulse Rate 56 L Respiratory 16 Rate Blood Pressure Blood Pressure 134/78 [Right] O2 Sat by Pulse 94 Oximetry Constitutional: no acute distress, alert ENT: oropharynx moist, other (Poor dentition) Neck: supple, no JVD Ascultation: Bilateral: diminished breath sounds, rhonchi Cardiovascular: regular rate and rhythm Gastrointestinal: normoactive bowel sounds, soft, non-tender Extremities: no cyanosis, no edema Neurologic: normal mental status Psychiatric: mood appropriate CBC and BMP: 09/18/21 05:38 09/17/21 05:06 ABG, PT/INR, D-dimer: PT/INR, D-dimer PT 14.5 Sec. (12.2-14.9) 09/16/21 09:34 INR 1.02 (0.87-1.13) 09/16/21 09:34 D-Dimer 2145.76 ng/mlDDU (0-234) H 09/16/21 04:54 Abnormal lab findings: Abnormal Labs 09/16/21 09/16/21 09/16/21 04:54 04:54 04:54 MCHC 35 H Lymph % (Auto) [place] % (Auto) Lymph # (Auto) [place] # (Auto) Seg Neutrophils % Monocytes % (Manual) 18.0 H Monocytes # (Manual) 1.5 H APTT D-Dimer 2145.76 H Heparin Anti-Xa Level Sodium 136 L Chloride 94.7 L Glucose 120 H POC Glucose ALT Albumin 3.8 L 03/12/0309/16/21 09/16/21 09:34 09:34 09:34 MCHC 35 H Lymph % (Auto) [place] % (Auto) 13.9 H Lymph # (Auto) [place] # (Auto) 1.2 H Seg Neutrophils % Monocytes % (Manual) Monocytes # (Manual) APTT 182.6 H* D-Dimer Heparin Anti-Xa Level Sodium 132 L Chloride 94.4 L Glucose 111 H POC Glucose ALT Albumin 09/16/21 09/16/21 09/16/21 15:25 15:38 22:57 MCHC Lymph % (Auto) [place] % (Auto) Lymph # (Auto) [place] # (Auto) Seg Neutrophils % Monocytes % (Manual) Monocytes # (Manual) APTT D-Dimer Heparin Anti-Xa Level 0.15 L 0.81 H Sodium Chloride Glucose POC Glucose 116 H ALT Albumin 09/17/21 09/17/21 09/17/21 05:06 05:06 07:15 MCHC Lymph % (Auto) 13.3 L [place] % (Auto) Lymph # (Auto) 1.0 L [place] # (Auto) Seg Neutrophils % 83.7 H Monocytes % (Manual) Monocytes # (Manual) APTT D-Dimer Heparin Anti-Xa Level 1.29 H Sodium 132 L Chloride 94.2 L Glucose 121 H POC Glucose ALT 6 L Albumin 3.3 L 09/17/21 09/17/21 09/17/21 07:46 10:37 15:38 MCHC Lymph % (Auto) [place] % (Auto) Lymph # (Auto) [place] # (Auto) Seg Neutrophils % Monocytes % (Manual) Monocytes # (Manual) APTT D-Dimer Heparin Anti-Xa Level Sodium Chloride Glucose POC Glucose 127 H 212 H 157 H ALT Albumin 09/17/21 09/18/21 09/18/21 21:09 07:39 11:38 MCHC Lymph % (Auto) [place] % (Auto) Lymph # (Auto) [place] # (Auto) Seg Neutrophils % Monocytes % (Manual) Monocytes # (Manual) APTT D-Dimer Heparin Anti-Xa Level Sodium Chloride Glucose POC Glucose 147 H 135 H 144 H ALT Albumin
[2021-09-18] MEDS: cefTRIAXone/NS 2 GM/100 ML 2 GM/100 ML BAG IV SCH (12:42)
--- NOTE | 2021-09-18 12:43 | Vascular Lab Report ---
DUPLEX DOPPLER LOWER EXTREMITY VEINS, BILATERAL INDICATION / CLINICAL INFORMATION: Pulmonary embolus. TECHNIQUE: Duplex doppler imaging was performed through the veins of both lower extremities using maicol ous compression and other maneuvers. COMPARISON: None available. FINDINGS: RIGHT COMMON FEMORAL VEIN: Negative. RIGHT FEMORAL VEIN: Negative. RIGHT POPLITEAL VEIN: Negative. RIGHT CALF VEINS: Negative. LEFT COMMON FEMORAL VEIN: Negative. LEFT FEMORAL VEIN: Negative. LEFT POPLITEAL VEIN: Negative. LEFT CALF VEINS: Negative. ADDITIONAL FINDINGS: None. IMPRESSION: 1. No sonographic evidence for DVT in either lower extremity. Signer Name: Daniel Neil MD Signed: 09/18/2021 12:38 PM Workstation Name: [id number]
[2021-09-18] MEDS: hydroCHLOROthiazide 25 MG TAB PO SCH (12:50)
[2021-09-18] MEDS: amLODIPine 5 MG TAB PO SCH (12:50)
[2021-09-18] MEDS: FAMOTIDINE 20 MG/2 ML INJ IV SCH ×2 (12:53→22:25)
[2021-09-18] MEDS: BACLOFEN 10 MG TAB PO PRN (12:53)
[2021-09-18] MEDS: DOCUSATE SODIUM 100 MG CAP PO SCH ×2 (12:54→22:24)
[2021-09-18] MEDS: FLUTICASONE PROPIONATE NASAL SPRAY 16 GM NS SCH (12:59)
--- NOTE | 2021-09-18 13:12 | Progress Note ---
Assessment and Plan - Patient Problems (1) Acute pulmonary embolism Current Visit: Yes Status: Acute Plan to address problem: Management of acute pulmonary embolism as per the recommendations of the pulmonary senior financial consultant. Cardiac status is stable and asymptomatic, echo showed normal left ventricular systolic function. Conservative cardiac management. Subjective Date of service: 09/18/21 Principal diagnosis: Shortness of breath, acute pulmonary embolism Interval history: Patient is comfortable, no new cardiac complaints, no cardiac events reported. Objective Vital Signs Temp Pulse Resp BP BP Pulse Ox 09/18/21 12:51 62 09/18/21 12:50 100 H 134/90 09/18/21 11:40 98.1 F 62 18 134/80 91 09/18/21 09:04 98.7 F 56 L 16 134/78 94 09/18/21 07:47 100 09/18/21 05:31 58 L 129/76 09/18/21 05:08 98.0 F 58 L 18 129/76 98 09/17/21 23:46 70 143/78 09/17/21 23:44 97.5 F L 70 20 143/78 93 09/17/21 22:00 60 97 09/17/21 21:44 100 09/17/21 19:47 66 09/17/21 19:23 97.9 F 56 L 20 127/80 95 09/17/21 15:37 98.0 F 17 148/77 09/17/21 14:38 68 - Physical Examination General: No Apparent Distress HEENT: Positive: PERRL Neck: Positive: neck supple Cardiac: Positive: Reg Rate and Rhythm Lungs: Positive: Decreased Breath Sounds Neuro: Positive: Grossly Intact Abdomen: Positive: Soft Skin: Positive: Clear Extremities: Absent: edema - Labs and Meds CBC 09/18/21 Range/Units 05:38 Hgb 12.2 (11.8-15.2) gm/dl Hct 36.0 (35.5-45.6) % Plt Count 234 (140-440) K/mm3
[2021-09-18] MEDS ORDERED: AZITHROMYCIN 250 MG TAB PO SCH (22:00)
[2021-09-18] MEDS: HEPARIN/ 0.45% NACL DRIP 25,000 UNIT/500 ML BAG IV SCH (23:02)
[2021-09-19] MEDS: dilTIAZem 60 MG TAB PO SCH ×3 (00:30→11:42)
[2021-09-19 06:18] LABS: BUN/Creatinine Ratio 22; Blood Urea Nitrogen 22 mg/dL (9-20); Calcium 8.7 mg/dL (8.4-10.2); Hematocrit 36.6 % (35.5-45.6); Hemoglobin 11.8 gm/dl (11.8-15.2); Hemolysis Index 10; Lymphocytes % (Auto) 8.2 % (13.4-35.0); Mean Corpuscular HGB Conc 32 % (32-34); Mean Corpuscular Volume 89 fl (84-94); Monocytes # (Auto) 0.6 K/mm3 (0.0-0.8); Platelet Count 236 K/mm3 (140-440); Red Blood Count 4.13 M/mm3 (3.65-5.03); Red Cell Distribution Width 14.4 % (13.2-15.2)
[2021-09-19] MEDS: methylPREDNISolone Sod Succinate 40 MG/1 ML INJ IV SCH ×2 (06:50→14:27)
[2021-09-19] MEDS ORDERED: FAMOTIDINE 20 MG TAB PO SCH (10:00)
[2021-09-19] MEDS: hydroCHLOROthiazide 25 MG TAB PO SCH (10:19)
[2021-09-19] MEDS: DOCUSATE SODIUM 100 MG CAP PO SCH (10:19)
[2021-09-19] MEDS: cefTRIAXone/NS 2 GM/100 ML 2 GM/100 ML BAG IV SCH (10:20)
[2021-09-19] MEDS: amLODIPine 5 MG TAB PO SCH (10:21)
--- NOTE | 2021-09-19 10:57 | Progress Note ---
Assessment and Plan 81 y/o male with pulmonary emboli. 09/19/21: Pulm armas no new recs. Please see below. 1. Suggest starting oral anticoagulation 2. Despite inconclusive Echo, appears to be improving. Would not wait on orals just from this. 3. Will need hypercoag work up, but this could be done as an outpatient, needs heme follow up. 4. Please obtain ambulatory pulse ox prior to discharge. Subjective Date of service: 09/19/21 Principal diagnosis: Shortness of breath, acute pulmonary embolism Interval history: No acute events. Objective Vital Signs - 12hr 09/18/21 09/19/21 09/19/21 23:19 00:30 05:52 Temperature 98.5 F 98.2 F Pulse Rate 61 63 64 Respiratory 16 18 Rate Blood Pressure 136/82 136/82 Blood Pressure 138/80 [Right] O2 Sat by Pulse 95 3 L Oximetry 09/19/21 09/19/21 09/19/21 06:50 06:51 07:02 Temperature Pulse Rate 64 Respiratory Rate Blood Pressure 135/81 Blood Pressure [Right] O2 Sat by Pulse 95 95 Oximetry 09/19/21 09/19/21 08:18 10:21 Temperature 97.4 F L Pulse Rate 57 L Respiratory 18 Rate Blood Pressure 128/77 128/77 Blood Pressure [Right] O2 Sat by Pulse 89 Oximetry Constitutional: no acute distress, alert ENT: oropharynx moist, other (Poor dentition) Neck: supple, no JVD Ascultation: Bilateral: diminished breath sounds, rhonchi Cardiovascular: regular rate and rhythm Gastrointestinal: normoactive bowel sounds, soft, non-tender Extremities: no cyanosis, no edema Neurologic: normal mental status Psychiatric: mood appropriate CBC and BMP: 09/19/21 04:40 09/19/21 04:40 ABG, PT/INR, D-dimer: PT/INR, D-dimer PT 14.5 Sec. (12.2-14.9) 09/16/21 09:34 INR 1.02 (0.87-1.13) 09/16/21 09:34 D-Dimer 2145.76 ng/mlDDU (0-234) H 09/16/21 04:54 Abnormal lab findings: Abnormal Labs 09/16/21 09/16/21 09/16/21 04:54 04:54 04:54 WBC MCHC 35 H Lymph % (Auto) [place] % (Auto) Lymph # (Auto) [place] # (Auto) Seg Neutrophils % Monocytes % (Manual) 18.0 H Seg Neutrophils # Monocytes # (Manual) 1.5 H APTT D-Dimer 2145.76 H Heparin Anti-Xa Level Sodium 136 L Chloride 94.7 L BUN Glucose 120 H POC Glucose ALT Albumin 3.8 L 09/16/21 09/16/21 09/16/21 09:34 09:34 09:34 WBC MCHC 35 H Lymph % (Auto) [place] % (Auto) 13.9 H Lymph # (Auto) [place] # (Auto) 1.2 H Seg Neutrophils % Monocytes % (Manual) Seg Neutrophils # Monocytes # (Manual) APTT 182.6 H* D-Dimer Heparin Anti-Xa Level Sodium 132 L Chloride 94.4 L BUN Glucose 111 H POC Glucose ALT Albumin 09/16/21 09/16/21 09/16/21 15:25 15:38 22:57 WBC MCHC Lymph % (Auto) [place] % (Auto) Lymph # (Auto) [place] # (Auto) Seg Neutrophils % Monocytes % (Manual) Seg Neutrophils # Monocytes # (Manual) APTT D-Dimer Heparin Anti-Xa Level 0.15 L 0.81 H Sodium Chloride BUN Glucose POC Glucose 116 H ALT Albumin 09/17/21 09/17/21 09/17/21 05:06 05:06 07:15 WBC MCHC Lymph % (Auto) 13.3 L [place] % (Auto) Lymph # (Auto) 1.0 L [place] # (Auto) Seg Neutrophils % 83.7 H Monocytes % (Manual) Seg Neutrophils # Monocytes # (Manual) APTT D-Dimer Heparin Anti-Xa Level 1.29 H Sodium 132 L Chloride 94.2 L BUN Glucose 121 H POC Glucose ALT 6 L Albumin 3.3 L 09/17/21 09/17/21 09/17/21 07:46 10:37 15:38 WBC MCHC Lymph % (Auto) [place] % (Auto) Lymph # (Auto) [place] # (Auto) Seg Neutrophils % Monocytes % (Manual) Seg Neutrophils # Monocytes # (Manual) APTT D-Dimer Heparin Anti-Xa Level Sodium Chloride BUN Glucose POC Glucose 127 H 212 H 157 H ALT Albumin 09/17/21 09/18/21 09/18/21 21:09 07:39 11:38 WBC MCHC Lymph % (Auto) [place] % (Auto) Lymph # (Auto) [place] # (Auto) Seg Neutrophils % Monocytes % (Manual) Seg Neutrophils # Monocytes # (Manual) APTT D-Dimer Heparin Anti-Xa Level Sodium Chloride BUN Glucose POC Glucose 147 H 135 H 144 H ALT Albumin 09/18/21 09/18/21 09/19/21 15:43 22:35 04:40 WBC 12.2 H MCHC Lymph % (Auto) 8.2 L [place] % (Auto) Lymph # (Auto) 1.0 L [place] # (Auto) Seg Neutrophils % 86.8 H Monocytes % (Manual) Seg Neutrophils # 10.6 H Monocytes # (Manual) APTT D-Dimer Heparin Anti-Xa Level Sodium Chloride BUN Glucose POC Glucose 154 H 180 H ALT Albumin 09/19/21 09/19/21 04:40 08:16 WBC MCHC Lymph % (Auto) [place] % (Auto) Lymph # (Auto) [place] # (Auto) Seg Neutrophils % Monocytes % (Manual) Seg Neutrophils # Monocytes # (Manual) APTT D-Dimer Heparin Anti-Xa Level Sodium 136 L Chloride BUN 22 H Glucose 135 H POC Glucose 178 H ALT Albumin
[2021-09-19] MEDS: FLUTICASONE PROPIONATE NASAL SPRAY 16 GM NS SCH (11:41)
[2021-09-19] MEDS: HEPARIN/ 0.45% NACL DRIP 25,000 UNIT/500 ML BAG IV SCH (11:46)
--- NOTE | 2021-09-19 12:18 | Progress Note ---
Assessment and Plan - Patient Problems (1) Acute pulmonary embolism Current Visit: Yes Status: Acute Plan to address problem: Management of acute pulmonary embolism as per the recommendations of the pulmonary intelligence consultant. Cardiac status is stable and asymptomatic, echo showed normal left ventricular systolic function. Conservative cardiac management. Subjective Date of service: 09/19/21 Principal diagnosis: Shortness of breath, acute pulmonary embolism Interval history: Patient is comfortable, no acute distress, no new cardiac events reported. Objective Vital Signs Temp Pulse Resp BP BP Pulse Ox 09/19/21 11:17 98.1 F 54 L 18 132/77 96 09/19/21 10:21 128/77 09/19/21 08:18 97.4 F L 57 L 18 128/77 89 09/19/21 07:02 95 09/19/21 06:51 95 09/19/21 06:50 64 135/81 09/19/21 05:52 98.2 F 64 18 138/80 3 L 09/19/21 00:30 63 136/82 09/18/21 23:19 98.5 F 61 16 136/82 95 09/18/21 22:00 95 09/18/21 19:24 98.7 F 70 16 146/77 94 09/18/21 19:18 71 09/18/21 15:43 98.7 F 70 18 125/74 93 09/18/21 12:51 62 09/18/21 12:50 100 H 134/90 - Physical Examination General: No Apparent Distress HEENT: Positive: PERRL Neck: Positive: neck supple Cardiac: Positive: Reg Rate and Rhythm Lungs: Positive: Decreased Breath Sounds Neuro: Positive: Grossly Intact Abdomen: Positive: Soft Skin: Positive: Clear Extremities: Absent: edema - Labs and Meds CBC 09/19/21 Range/Units 04:40 WBC 12.2 H (4.5-11.0) K/mm3 RBC 4.13 (3.65-5.03) M/mm3 Hgb 11.8 (11.8-15.2) gm/dl Hct 36.6 (35.5-45.6) % Plt Count 236 (140-440) K/mm3 Lymph # (Auto) 1.0 L (1.2-5.4) K/mm3 [place] # (Auto) 0.6 (0.0-0.8) K/mm3 Eos # (Auto) 0.0 (0.0-0.4) K/mm3 Baso # (Auto) 0.0 (0.0-0.1) K/mm3 Comprehensive Metabolic Panel 09/19/21 Range/Units 04:40 Sodium 136 L (137-145) mmol/L Potassium 3.6 (3.6-5.0) mmol/L Chloride 98.1 (98-107) mmol/L Carbon Dioxide 26 (22-30) mmol/L BUN 22 H (9-20) mg/dL Creatinine 1.0 (0.8-1.3) mg/dL Glucose 135 H (75-100) mg/dL Calcium 8.7 (8.4-10.2) mg/dL
[2021-09-19 17:41] VITALS: BP 129/65
--- NOTE | 2021-09-19 18:33 | History and Physical Report ---
History of Present Illness Date of examination: 09/19/21 Date of admission: 09/16/21 08:52 Chief complaint: Acute pulmonary embolism History of present illness: This is a 81-year-old male with history of CHF, COPD, Severe arthritis, hypertension, Dementia with intermittent forgetfulness (according to the sister), Incontinence, and tobacco dependence who presents with chest pain right-sided. Hurts to cough. Hurts with inspiration. He has productive cough with sputum. He has had bilateral lower extremity swelling for quite some time. Most of the information is obtained from the ER physician most of the time I went to examine the patient he was beat sedated not sure if this is from medication although responsive to noxious stimuli. Did not exhibit severe shortness of breath or respiratory distress although the nurse reports that his surgery drops to the mid 80s when he is off oxygen support According to the family-He is followed at [facility] and his primary care physician is Dr. Flanagan Work-up in the ED found him to have "pulmonary emboli in the right mid and right lower lung mcnair along with the left upper lung field. None are central. There is also airspace disease concerning for pneumonia in the right lower lobe. There was no evidence of heart strain. This was the verbal report" September 19, 2021 Past History Past Medical History: COPD, heart failure, hypertension, hyperlipidemia, other (Dementia) Past Surgical History: No surgical history Social history: lives with family, full code Family history: no significant family history Medications and Allergies Allergies Allergy/AdvReac Type Severity Reaction Status Date / Time No Known Allergies Allergy Verified 09/16/21 04:48 Home Medications Medication Instructions Recorded Confirmed Last Taken Type AtorvaSTATin [Lipitor] 20 mg PO QHS 09/16/21 09/16/21 09/15/21 History Baclofen [Lioresal] 10 mg PO DAILY 09/16/21 09/16/21 09/15/21 History Gabapentin 600 mg PO QHS 09/16/21 09/16/21 09/15/21 History Gabapentin [Neurontin] 300 mg PO DAILY 09/16/21 09/16/21 09/15/21 History Gabapentin [Neurontin] 600 mg PO QAM 09/16/21 09/16/21 09/15/21 History hydroCHLOROthiazide [HCTZ] 25 mg PO QDAY 09/16/21 09/16/21 09/15/21 History Active Meds: Active Medications Acetaminophen (Acetaminophen 325 Mg Tab) 650 mg PO Q6H PRN PRN Reason: Pain, Mild (1-3) Albuterol (Albuterol 2.5 Mg/3 Ml Nebu) 2.5 mg IH Q3HRT PRN PRN Reason: Shortness Of Breath Amlodipine Besylate (Amlodipine 5 Mg Tab) 5 mg PO QDAY [facility] Last Admin: 09/19/21 10:21 Dose: 5 mg Atorvastatin Calcium (Atorvastatin 40 Mg Tab) 40 mg PO QHS [facility] Last Admin: 09/18/21 22:24 Dose: 40 mg Azithromycin (Azithromycin 250 Mg Tab) 500 mg PO Q24H [facility]; Protocol Stop: 09/20/21 22:01 Last Admin: 09/18/21 22:26 Dose: 500 mg Baclofen (Baclofen 10 Mg Tab) 10 mg PO TID PRN PRN Reason: spasm Last Admin: 09/18/21 12:53 Dose: 10 mg Diltiazem HCl (Diltiazem 60 Mg Tab) 60 mg PO Q6HR [facility] Last Admin: 09/19/21 11:42 Dose: 60 mg Docusate Sodium (Docusate Sodium 100 Mg Cap) 100 mg PO BID [facility] Last Admin: 09/19/21 10:19 Dose: 100 mg Famotidine (Famotidine 20 Mg Tab) 20 mg PO BID [facility] Last Admin: 09/19/21 10:20 Dose: 20 mg Fluticasone Propionate (Fluticasone Propionate Nasal [place] 16 Gm) 100 mcg NS QDAY [facility] Last Admin: 09/19/21 11:41 Dose: 100 mcg Heparin Sodium (Porcine) (Heparin 10,000 Units/10 Ml Vial) 3,800 unit 40 unit/kg (3800 unit) IV Q6H PRN PRN Reason: Anti-Xa Assay < 0.1 units/ml Hydrochlorothiazide (Hydrochlorothiazide 25 Mg Tab) 25 mg PO QDAY [facility] Last Admin: 09/19/21 10:19 Dose: 25 mg Heparin Sodium/Sodium Chloride (Heparin/ 0.45% Nacl-25,000 Unit/500 Ml) 25,000 unit in 500 mls @ 27 mls/hr IV TITR [facility]; Protocol Last Admin: 09/19/21 11:46 Dose: 1,500 units/hr, 30 mls/hr Ceftriaxone Sodium (Rocephin/Ns 2 Gm/100 Ml) 2 gm in 100 mls @ 200 mls/hr IV Q24H [facility]; Protocol Stop: 09/20/21 10:29 Last Admin: 09/19/21 10:20 Dose: 200 mls/hr Methylprednisolone Sodium Succinate (Methylprednisolone Sod Succinate 40 Mg/1 Ml Inj) 40 mg IV Q8HR [facility] Last Admin: 09/19/21 14:27 Dose: 40 mg Morphine Sulfate (Morphine 2 Mg/1 Ml Inj) 2 mg IV Q4H PRN PRN Reason: Pain, Moderate (4-6) Naloxone HCl (Naloxone 0.4 Mg/1 Ml Inj) 0.1 mg IV Q2MIN PRN PRN Reason: Res Rate </= 8 or 02 SAT < 92% Nitroglycerin (Nitroglycerin 0.4 Mg Tab Subl) 0.4 mg SL Q5M PRN PRN Reason: Chest Pain Ondansetron HCl (Ondansetron 4 Mg/2 Ml Inj) 4 mg IV Q8H PRN PRN Reason: Nausea And Vomiting Sodium Chloride (Sodium Chloride 0.9% 10 Ml Flush Syringe) 10 ml IV BID [facility] Last Admin: 09/19/21 10:21 Dose: 10 ml Sodium Chloride (Sodium Chloride 0.9% 10 Ml Flush Syringe) 10 ml IV PRN PRN PRN Reason: LINE FLUSH Last Admin: 09/19/21 14:27 Dose: 10 ml Exam - Constitutional Vitals: Temp Pulse Resp BP Pulse Ox 98.3 F 56 L 18 129/65 95 09/19/21 15:52 09/19/21 15:52 09/19/21 15:52 09/19/21 15:52 09/19/21 15:52 HEART Score - HEART Score EKG: Non-specific Age: > 65 Risk factors: 1-2 risk factors Troponin: Troponin T < 0.010 ng/mL (0.00-0.029) 09/16/21 04:54 Troponin: < normal limit - Critical Actions Critical Actions: 4-6 pts:12-16.6% risk of adverse cardiac event. Should be admitted Results - Labs CBC & Chem 7: 09/19/21 04:40 09/19/21 04:40 Labs: Laboratory Last Values WBC 12.2 K/mm3 (4.5-11.0) H 09/19/21 04:40 RBC 4.13 M/mm3 (3.65-5.03) 09/19/21 04:40 Hgb 11.8 gm/dl (11.8-15.2) 09/19/21 04:40 Hct 36.6 % (35.5-45.6) 09/19/21 04:40 MCV 89 fl (84-94) 09/19/21 04:40 MCH 29 pg (28-32) 09/19/21 04:40 MCHC 32 % (32-34) 09/19/21 04:40 RDW 14.4 % (13.2-15.2) 09/19/21 04:40 Plt Count 236 K/mm3 (140-440) 09/19/21 04:40 Lymph % (Auto) 8.2 % (13.4-35.0) L 09/19/21 04:40 Waldo % (Auto) 5.0 % (0.0-7.3) 09/19/21 04:40 Eos % (Auto) 0.0 % (0.0-4.3) 09/19/21 04:40 Baso % (Auto) 0.0 % (0.0-1.8) 09/19/21 04:40 Lymph # (Auto) 1.0 K/mm3 (1.2-5.4) L 09/19/21 04:40 Waldo # (Auto) 0.6 K/mm3 (0.0-0.8) 09/19/21 04:40 Eos # (Auto) 0.0 K/mm3 (0.0-0.4) 09/19/21 04:40 Baso # (Auto) 0.0 K/mm3 (0.0-0.1) 09/19/21 04:40 Add Manual Diff Complete 09/16/21 04:54 Total Counted 100 09/16/21 04:54 Seg Neutrophils % 86.8 % (40.0-70.0) H 09/19/21 04:40 Seg Neuts % (Manual) 59.0 % (40.0-70.0) 09/16/21 04:54 Band Neutrophils % 0 % 09/16/21 04:54 Lymphocytes % (Manual) 21.0 % (13.4-35.0) 09/16/21 04:54 Reactive Lymphs % (Man) 0 % 09/16/21 04:54 Monocytes % (Manual) 18.0 % (0.0-7.3) H 09/16/21 04:54 Eosinophils % (Manual) 2.0 % (0.0-4.3) 09/16/21 04:54 Basophils % (Manual) 0 % (0.0-1.8) 09/16/21 04:54 Metamyelocytes % 0 % 09/16/21 04:54 Myelocytes % 0 % 09/16/21 04:54 Promyelocytes % 0 % 09/16/21 04:54 Blast Cells % 0 % 09/16/21 04:54 Nucleated RBC % Not Reportable 09/16/21 04:54 Seg Neutrophils # 10.6 K/mm3 (1.8-7.7) H 09/19/21 04:40 Seg Neutrophils # Man 5.0 K/mm3 (1.8-7.7) 09/16/21 04:54 Band Neutrophils # 0.0 K/mm3 09/16/21 04:54 Lymphocytes # (Manual) 1.8 K/mm3 (1.2-5.4) 09/16/21 04:54 Abs React Lymphs (Man) 0.0 K/mm3 09/16/21 04:54 Monocytes # (Manual) 1.5 K/mm3 (0.0-0.8) H 09/16/21 04:54 Eosinophils # (Manual) 0.2 K/mm3 (0.0-0.4) 09/16/21 04:54 Basophils # (Manual) 0.0 K/mm3 (0.0-0.1) 09/16/21 04:54 Metamyelocytes # 0.0 K/mm3 09/16/21 04:54 Myelocytes # 0.0 K/mm3 09/16/21 04:54 Promyelocytes # 0.0 K/mm3 09/16/21 04:54 Blast Cells # 0.0 K/mm3 09/16/21 04:54 WBC Morphology Not Reportable 09/16/21 04:54 Hypersegmented Neuts Not Reportable 09/16/21 04:54 Hyposegmented Neuts Not Reportable 09/16/21 04:54 Hypogranular Neuts Not Reportable 09/16/21 04:54 Smudge Cells Not Reportable 09/16/21 04:54 Toxic Granulation Not Reportable 09/16/21 04:54 Toxic Vacuolation Not Reportable 09/16/21 04:54 Dohle Bodies Not Reportable 09/16/21 04:54 Pelger-Huet Anomaly Not Reportable 09/16/21 04:54 Nader Rods Not Reportable 09/16/21 04:54 Platelet Estimate Consistent w auto 09/16/21 04:54 Clumped Platelets Not Reportable 09/16/21 04:54 Plt Clumps, EDTA Not Reportable 09/16/21 04:54 Large Platelets Not Reportable 09/16/21 04:54 Giant Platelets Not Reportable 09/16/21 04:54 Platelet Satelliting Not Reportable 09/16/21 04:54 Plt Morphology Comment Not Reportable 09/16/21 04:54 RBC Morphology Not Reportable 09/16/21 04:54 Dimorphic RBCs Not Reportable 09/16/21 04:54 Polychromasia Not Reportable 09/16/21 04:54 Hypochromasia Not Reportable 09/16/21 04:54 Poikilocytosis Not Reportable 09/16/21 04:54 Anisocytosis 1+ 09/16/21 04:54 Microcytosis Not Reportable 09/16/21 04:54 Macrocytosis Not Reportable 09/16/21 04:54 Spherocytes Not Reportable 09/16/21 04:54 Pappenheimer Bodies Not Reportable 09/16/21 04:54 Sickle Cells Not Reportable 09/16/21 04:54 Target Cells Not Reportable 09/16/21 04:54 Tear Drop Cells Not Reportable 09/16/21 04:54 Ovalocytes Not Reportable 09/16/21 04:54 Helmet Cells Not Reportable 09/16/21 04:54 [place] Bodies Not Reportable 09/16/21 04:54 [place] Rings Not Reportable 09/16/21 04:54 Milo Cells Not Reportable 09/16/21 04:54 Bite Cells Not Reportable 09/16/21 04:54 Crenated Cell Not Reportable 09/16/21 04:54 Elliptocytes Not Reportable 09/16/21 04:54 Acanthocytes (Spur) Not Reportable 09/16/21 04:54 Rouleaux Not Reportable 09/16/21 04:54 Hemoglobin C Crystals Not Reportable 09/16/21 04:54 Schistocytes Not Reportable 09/16/21 04:54 Malaria parasites Not Reportable 09/16/21 04:54 Raymond Bodies Not Reportable 09/16/21 04:54 Hem Pathologist Commnt No 09/16/21 04:54 PT 14.5 Sec. (12.2-14.9) 09/16/21 09:34 INR 1.02 (0.87-1.13) 09/16/21 09:34 APTT 182.6 Sec. (24.2-36.6) H* 09/16/21 09:34 D-Dimer 2145.76 ng/mlDDU (0-234) H 09/16/21 04:54 Heparin Anti-Xa Level 2.00 U.I./ml (0.3-0.7) H 09/19/21 16:29 Sodium 136 mmol/L (137-145) L 09/19/21 04:40 Potassium 3.6 mmol/L (3.6-5.0) 09/19/21 04:40 Chloride 98.1 mmol/L (98-107) 09/19/21 04:40 Carbon Dioxide 26 mmol/L (22-30) 09/19/21 04:40 Anion Gap 16 mmol/L 09/19/21 04:40 BUN 22 mg/dL (9-20) H 09/19/21 04:40 Creatinine 1.0 mg/dL (0.8-1.3) 09/19/21 04:40 Estimated GFR > 60 ml/min 09/19/21 04:40 BUN/Creatinine Ratio 22 % 09/19/21 04:40 Glucose 135 mg/dL (75-100) H 09/19/21 04:40 POC Glucose 126 mg/dL (70-105) H 09/19/21 15:50 Calcium 8.7 mg/dL (8.4-10.2) 09/19/21 04:40 Total Bilirubin 0.40 mg/dL (0.1-1.2) 09/17/21 05:06 AST 12 units/L (5-40) 09/17/21 05:06 ALT 6 units/L (7-56) L 09/17/21 05:06 Alkaline Phosphatase 63 units/L (35-129) 09/17/21 05:06 Troponin T < 0.010 ng/mL (0.00-0.029) 09/16/21 04:54 NT-Pro-B Natriuret Pep 177.4 pg/mL (0-900) 09/16/21 04:54 Total Protein 6.6 g/dL (6.3-8.2) 09/17/21 05:06 Albumin 3.3 g/dL (3.9-5) L 09/17/21 05:06 Albumin/Globulin Ratio 1.0 % 09/17/21 05:06 Plasma/Serum Alcohol < 0.01 % (0-0.07) 09/16/21 09:34 Ybarra/IV: Voiding Method Urinal
--- NOTE | 2021-09-19 18:34 | Discharge Summary ---
Providers - Providers Date of Admission: 09/16/21 08:52 Date of discharge: 09/19/21 Attending physician: BRINA CROFT 09/16/21 Consult to Cardiac Rehabilitation [CONS] Routine Reason For Exam: Phase I 09/16/21 08:52 Consult to Physician [CONS] Routine Comment: Consulting Provider: KELLEN MUNIZ Physician Instructions: Reason For Exam: pulmonary embolisim 09/16/21 10:11 Consult to Physician [CONS] Routine Comment: Consulting Provider: ALEKSEY CAZARES Physician Instructions: Reason For Exam: chf Hospitalization Condition: Stable Hospital course: This is a 81-year-old male with history of CHF, COPD, Severe arthritis, hypertension, Dementia with intermittent forgetfulness (according to the sister), Incontinence, and tobacco dependence who presents with chest pain right-sided. Hurts to cough. Hurts with inspiration. He has productive cough with sputum. He has had bilateral lower extremity swelling for quite some time. Most of the information is obtained from the ER physician most of the time I went to examine the patient he was beat sedated not sure if this is from medication although responsive to noxious stimuli. Did not exhibit severe shortness of breath or respiratory distress although the nurse reports that his surgery drops to the mid 80s when he is off oxygen support According to the family-He is followed at [facility] and his primary care physician is Dr. Flanagan Work-up in the ED found him to have "pulmonary emboli in the right mid and right lower lung mcnair along with the left upper lung field. None are central. There is also airspace disease concerning for pneumonia in the right lower lobe. There was no evidence of heart strain. This was the verbal report" Hospital course: 09/17/2021. Continue anticoagulation. Consider transition to Eliquis. Follow-up echocardiogram. Consider venous Doppler studies of the lower extremity to rule out DVT. Pulmonary to perform PFTs as an outpatient. Continue IV antibiotics for pneumonia. Continue IV steroids, bronchodilators/breathing treatments 09/18/2021. Echocardiogram reveals left ventricle with normal size but mild concentric left ventricular hypertrophy. Left ventricular systolic function is normal with EF of 55-60%. Right ventricle not well visualized but no mention of right heart strain. Continue with antibiotic and bronchodilator therapy. 09/19/2021 Patient doing well on room air Oxygen saturations are 96-98 and ambulatory oxygen are 94 Patient was discharged on Eliquis versus 6 months to 1 year Patient to follow-up with his primary care physician Acute pulmonary emboli on the right mid and lower lung mcnair and left upper lung mcnair Symptomatically better Patient to be discharged on Eliquis for 6 months to 1 year Hypoxic respiratory failure Improved, oxygen saturations 98% on room air Congestive heart failure likely systolic chronic in nature Continue Lasix Hypertension urgency Blood pressure under control, continue blood pressure medicines Dementia with intermittent forgiveness chronic Mild Severe arthritis Analgesics as needed COPD with mild exacerbation secondary to pulmonary embolism Albuterol MDI as needed Possible right lower lobe pneumonia Discharge on oral antibiotics Systemic inflammatory response syndrome Improved Hyponatremia Improved Disposition: 01 HOME / SELF CARE / HOMELESS Final Discharge Diagnosis (Prints w/discharge instructions): Acute respiratory failure with hypoxia. Acute pulmonary embolism. Congestive heart failure. Hypertensive urgency. COPD with mild exacerbation. Systemic inflammatory response syndrome. Hyponatremia Time spent for discharge: 35 minutes - Discharge Diagnoses (1) Acute respiratory failure with hypoxia Status: Acute (2) Acute pulmonary embolism Status: Acute (3) Community acquired pneumonia Status: Acute (4) CHF (congestive heart failure) Status: Acute (5) Hypertension Status: Acute Core Measure Documentation - Palliative Care Palliative Care/ Comfort Measures: Not Applicable - Core Measures Any of the following diagnoses?: none Exam - Constitutional Vitals: Temp Pulse Resp BP Pulse Ox 98.3 F 56 L 18 129/65 95 09/19/21 15:52 09/19/21 15:52 09/19/21 15:52 09/19/21 15:52 09/19/21 15:52 General appearance: Present: no acute distress, well-nourished - EENT Eyes: Present: PERRL ENT: hearing intact, clear oral mucosa - Neck Neck: Present: supple, normal ROM - Respiratory Respiratory effort: normal Respiratory: bilateral: CTA - Cardiovascular Heart rate: 78 Rhythm: regular Heart Sounds: Present: S1 & S2. Absent: rub, click - Extremities Extremities: pulses symmetrical, No edema Peripheral Pulses: within normal limits - Abdominal General gastrointestinal: Present: soft, non-tender, non-distended, normal bowel sounds Male genitourinary: Present: normal - Integumentary Integumentary: Present: clear, warm, dry - Musculoskeletal Musculoskeletal: gait normal, strength equal bilaterally - Psychiatric Psychiatric: appropriate mood/affect, intact judgment & insight - Neurologic Neurologic: CNII-XII intact, moves all extremities Plan Activity: no restrictions Diet: low fat, low cholesterol, low salt Follow up with: TELMA BOGGS [Other] - 7 Days KELLEN MUNIZ MD [Staff Physician] - 7 Days
== END 2021-09-19 19:44 | disposition home health service (06) | DRG 175 ==
LOC: ED 03:40 → 4A 08:52
PROVIDERS: ADMIT Internal Medicine; ATTEND Internal Medicine
DX: I26.99 Other pulmonary embolism without acute cor pulmonale (principal); J18.9 Pneumonia, unspecified organism; J96.01 Acute respiratory failure with hypoxia; G93.40 Encephalopathy, unspecified; I11.0 Hypertensive heart disease with heart failure; I50.22 Chronic systolic (congestive) heart failure; I16.0 Hypertensive urgency; R65.10 Systemic inflammatory response syndrome (SIRS) of non-infectious origin without acute organ dysfunction; E87.1 Hypo-osmolality and hyponatremia; M19.90 Unspecified osteoarthritis, unspecified site; E78.5 Hyperlipidemia, unspecified; F03.90 Unspecified dementia, unspecified severity, without behavioral disturbance, psychotic disturbance, mood disturbance, and anxiety; J44.0 Chronic obstructive pulmonary disease with (acute) lower respiratory infection; J44.1 Chronic obstructive pulmonary disease with (acute) exacerbation; F17.210 Nicotine dependence, cigarettes, uncomplicated
CPT/HCPCS: 36415; 71045; 71275; 80048; 80053; 80320; 82962; 83880; 84484; 85007; 85014; 85018; 85025; 85049; 85379; 85520; 85610; 85730; 93005; 93010; 93306; 93970; 94640; G0378; J3490; C8929; G0480; J0456; J0696; J1644; J2920; Q9967

== ENCOUNTER 2021-10-01 19:49 | Emergency (ER) | payer MEDICARE ==
--- NOTE | 2021-10-01 21:27 | XRay Report ---
CHEST 2 VIEWS INDICATION / CLINICAL INFORMATION: CHEST PAIN. FINDINGS: SUPPORT DEVICES: None. HEART / MEDIASTINUM: No significant abnormality. LUNGS / PLEURA: Ill-defined opacity within the peripheral right lower lung is not well visualized on the lateral view and may be external to the chest. No acute air space disease is identified. Signer Name: Talha Mathews MD Signed: 10/01/2021 9:23 PM Workstation Name: [id number]
[2021-10-01 21:57] LABS: Basophils # (Auto) 0.2 K/mm3 (0.0-0.1); Basophils % (Auto) 2.3 % (0.0-1.8); Eosinophils # (Auto) 0.3 K/mm3 (0.0-0.4); Eosinophils % (Auto) 3.7 % (0.0-4.3); Hemoglobin 12.5 gm/dl (11.8-15.2); Lymphocytes # (Auto) 1.5 K/mm3 (1.2-5.4); Lymphocytes % (Auto) 19.6 % (13.4-35.0); Mean Corpuscular HGB Conc 33 % (32-34); Mean Corpuscular Volume 90 fl (84-94); Monocytes # (Auto) 0.8 K/mm3 (0.0-0.8); Monocytes % (Auto) 10.4 % (0.0-7.3); Platelet Count 198 K/mm3 (140-440); Red Blood Count 4.24 M/mm3 (3.65-5.03); Red Cell Distribution Width 15.4 % (13.2-15.2)
[2021-10-01 22:20] LABS: Alanine Aminotransferase 13 units/L (7-56); Albumin 3.6 g/dL (3.9-5); BUN/Creatinine Ratio 15; Blood Urea Nitrogen 15 mg/dL (9-20); Calcium 9.4 mg/dL (8.4-10.2); Hemolysis Index 9
--- NOTE | 2021-10-02 01:12 | Emergency Department Report ---
ED Chest Pain HPI - General Chief Complaint: Chest Pain Stated Complaint: CHEST PAIN/COUGH Time Seen by Provider: 10/01/21 23:45 Source: patient Mode of arrival: Ambulatory Limitations: No Limitations - History of Present Illness Initial Comments: 81-year-old male with history of CHF, COPD, Severe arthritis, hypertension, Dementia with intermittent forgetfulness (according to the sister), Incontinence, and tobacco dependence who presents with chest pain right-sided. Patient was admitted earlier this month with the same complaint. He was diagnosed with acute respiratory failure with hypoxia secondary pulmonary emboli and infiltrate at that time and discharged on several medication including Eliquis and level. Patient endorses right lower chest pain worse with coughing and minimal with movement. Does not complain of shortness of breath or fever. Patient does feel like he has little cough chest congestion. Per patient's medication review he apparently is only taking gabapentin. He also states he completed Levaquin but did not receive any other of the recently prescribed medications from the pharmacist. Is unclear as to why patient is not taking the recently prescribed medications including Eliquis. Patient states he lives alone - Related Data Home Medications Medication Instructions Recorded Confirmed Last Taken Gabapentin [Neurontin] 300 mg PO DAILY 09/16/21 09/16/21 09/15/21 Gabapentin [Neurontin] 600 mg PO QAM 09/16/21 09/16/21 09/15/21 hydroCHLOROthiazide [HCTZ] 25 mg PO QDAY 09/16/21 09/16/21 09/15/21 Previous Rx's Medication Instructions Recorded Last Taken Type Gabapentin 600 mg PO TID #90 cap 09/19/21 Unknown Rx levoFLOXacin [Levaquin] 750 mg PO QDAY #5 tablet 09/19/21 Unknown Rx Apixaban [Eliquis starter pack] 5 mg PO BID 30 Days 10/02/21 Unknown Rx AtorvaSTATin [Lipitor] 20 mg PO QHS #30 tab 10/02/21 Unknown Rx Baclofen [Lioresal] 10 mg PO DAILY #30 tab 10/02/21 Unknown Rx Potassium Chloride [K-Dur] 10 meq PO QDAY #30 10/02/21 Unknown Rx Valsartan/Hydrochlorothiazide 1 each PO QDAY #30 tab 10/02/21 Unknown Rx [Valsartan-Hctz 160-25 mg Tab] amLODIPine 10 mg PO QDAY #30 tablet 10/02/21 Unknown Rx Allergies Allergy/AdvReac Type Severity Reaction Status Date / Time No Known Allergies Allergy Verified 09/16/21 04:48 Heart Score - HEART Score History: Slightly suspicious EKG: Normal Age: > 65 Risk factors: > 3 risk factors or hx of atherosclerotic disease Troponin: < normal limit HEART Score: 4 - EKG Read Time Time EKG Completed: 20:23 EKG Read Time: 20:28 ED Review of Systems ROS: Stated complaint: CHEST PAIN/COUGH Other details as noted in HPI Comment: All other systems reviewed and negative ED Past Medical Hx - Past Medical History Hx Hypertension: Yes Hx Congestive Heart Failure: Yes Hx Arthritis: Yes Hx COPD: Yes Hx Dementia: Yes - Social History Smoking Status: Current Every Day Smoker Substance Use Type: None - Medications Home Medications: Home Medications Medication Instructions Recorded Confirmed Last Taken Type Gabapentin [Neurontin] 300 mg PO DAILY 09/16/21 09/16/21 09/15/21 History Gabapentin [Neurontin] 600 mg PO QAM 09/16/21 09/16/21 09/15/21 History hydroCHLOROthiazide [HCTZ] 25 mg PO QDAY 09/16/21 09/16/21 09/15/21 History Gabapentin 600 mg PO TID #90 cap 09/19/21 Unknown Rx levoFLOXacin [Levaquin] 750 mg PO QDAY #5 tablet 09/19/21 Unknown Rx Apixaban [Eliquis starter pack] 5 mg PO BID 30 Days 10/02/21 Unknown Rx AtorvaSTATin [Lipitor] 20 mg PO QHS #30 tab 10/02/21 Unknown Rx Baclofen [Lioresal] 10 mg PO DAILY #30 tab 10/02/21 Unknown Rx Potassium Chloride [K-Dur] 10 meq PO QDAY #30 10/02/21 Unknown Rx Valsartan/Hydrochlorothiazide 1 each PO QDAY #30 tab 10/02/21 Unknown Rx [Valsartan-Hctz 160-25 mg Tab] amLODIPine 10 mg PO QDAY #30 tablet 10/02/21 Unknown Rx ED Physical Exam - General Limitations: No Limitations - Other Other exam information: General: No acute distress Head: Atraumatic Eyes: normal appearance ENT: Moist mucous membranes Neck: Normal appearance, no midline tenderness Chest: Clear to auscultation bilaterally, chest wall nontender CV: Regular rate and rhythm Abdomen: Soft, normal bowel sounds, nontender, nondistended, no rebound or guarding Back: Normal inspection Extremity: Normal inspection, full range of motion Neuro: Alert O x 3, no facial asymmetry, speech clear, no gross motor sensory deficit Psych: Appropriate behavior Skin: No rash ED Course Vital Signs 10/02/21 00:09 Temperature 98.9 F Pulse Rate 68 Respiratory 18 Rate Blood Pressure 154/96 O2 Sat by Pulse 95 Oximetry NADIYA score - Nadiya Score Age > 65: (1) Yes Aspirin use within the Past 7 Days: (0) No 3 or more CAD Risk Factors: (0) No 2 or more Angina events in past 24 hrs: (0) No Known CAD with more than 50% Stenosis: (0) No Elevated Cardiac Markers: (0) No ST Deviation Greater than 0.5mm: (0) No NADIYA Score: 1 ED Medical Decision Making - Lab Data Result diagrams: 10/01/21 21:13 10/01/21 21:13 Lab Results 10/01/21 10/01/21 10/02/21 Range/Units 21:13 21:13 00:19 WBC 7.5 (4.5-11.0) K/mm3 RBC 4.24 (3.65-5.03) M/mm3 Hgb 12.5 (11.8-15.2) gm/dl Hct 38.0 (35.5-45.6) % MCV 90 (84-94) fl MCH 29 (28-32) pg MCHC 33 (32-34) % RDW 15.4 H (13.2-15.2) % Plt Count 198 (140-440) K/mm3 Lymph % (Auto) 19.6 (13.4-35.0) % Isabella % (Auto) 10.4 H (0.0-7.3) % Eos % (Auto) 3.7 (0.0-4.3) % Baso % (Auto) 2.3 H (0.0-1.8) % Lymph # (Auto) 1.5 (1.2-5.4) K/mm3 Isabella # (Auto) 0.8 (0.0-0.8) K/mm3 Eos # (Auto) 0.3 (0.0-0.4) K/mm3 Baso # (Auto) 0.2 H (0.0-0.1) K/mm3 Seg Neutrophils % 64.0 (40.0-70.0) % Seg Neutrophils # 4.8 (1.8-7.7) K/mm3 Sodium 138 (137-145) mmol/L Potassium 4.6 (3.6-5.0) mmol/L Chloride 102.4 (98-107) mmol/L Carbon Dioxide 25 (22-30) mmol/L Anion Gap 15 mmol/L BUN 15 (9-20) mg/dL Creatinine 1.0 (0.8-1.3) mg/dL Estimated GFR > 60 ml/min BUN/Creatinine Ratio 15 % Glucose 88 (75-100) mg/dL Calcium 9.4 (8.4-10.2) mg/dL Total Bilirubin 0.20 (0.1-1.2) mg/dL AST 13 (5-40) units/L ALT 13 (7-56) units/L Alkaline Phosphatase 75 (35-129) units/L Troponin T < 0.010 < 0.010 (0.00-0.029) ng/mL Total Protein 6.6 (6.3-8.2) g/dL Albumin 3.6 L (3.9-5) g/dL Albumin/Globulin Ratio 1.2 % - EKG Data -: EKG Interpreted by Me (PVC, incomplete RBBB) EKG shows normal: sinus rhythm, ST-T waves (No STEMI) Rate: normal - EKG Data When compared to previous EKG there are: no significant change - Radiology Data Radiology results: report reviewed CHEST 2 VIEWS INDICATION / CLINICAL INFORMATION: CHEST PAIN. FINDINGS: SUPPORT DEVICES: None. HEART / MEDIASTINUM: No significant abnormality. LUNGS / PLEURA: Ill-defined opacity within the peripheral right lower lung is not well visualized on the lateral view and may be external to the chest. No acute air space disease is identified. - Medical Decision Making 81-year-old male presents to the hospital with persistent right-sided chest pain. At this time patient does not have any acute EKG abnormalities, has negative troponin, no significant chest x-ray findings compared to previous, and has a known recent history of pulmonary emboli without signs of hypoxia. I suspect that patient is not compliant with his Eliquis. He will be provided a dose of Eliquis here and restarted on the medication. I would restart all his recently prescribed medications. I am unclear at this time why patient was a able to fill his recently prescribed meds or if he received his prescriptions Critical Care Time: No Critical care attestation.: If time is entered above; I have spent that time in minutes in the direct care of this critically ill patient, excluding procedure time. ED Disposition Clinical Impression: Atypical chest pain, History of pulmonary embolism, Noncompliance with medication regimen, Medication refill Disposition: 01 HOME / SELF CARE / HOMELESS Is pt being admited?: No Does the pt Need Aspirin: No Condition: Stable Instructions: Nonspecific Chest Pain, Adult, Pulmonary Embolism, Apixaban oral tablets Additional Instructions: Take the medication as prescribed. Take Tylenol as needed for pain. follow-up with your doctor or doctor/clinic provided. Return if symptoms worsen as indicated by your discharge instructions. Prescriptions: amLODIPine 10 mg PO QDAY #30 tablet Apixaban [Eliquis starter pack] 5 mg PO BID 30 Days Potassium Chloride [K-Dur] 10 meq PO QDAY #30 Baclofen [Lioresal] 10 mg PO DAILY #30 tab AtorvaSTATin [Lipitor] 20 mg PO QHS #30 tab Valsartan/Hydrochlorothiazide [Valsartan-Hctz 160-25 mg Tab] 1 each PO QDAY #30 tab Referrals: your, primary care doctor [Other] - 3-5 Days MAYELIN BERRY MD [Staff Physician] - 3-5 Days (Primary care doctor) ANGLE HO MD [Staff Physician] - 3-5 Days (Lung specialist) Time of Disposition: 01:37
[2021-10-02] MEDS ORDERED: APIXABAN 5 MG TAB PO ONE (01:30)
[2021-10-02 03:15] VITALS: BP 162/90
--- NOTE | 2021-10-02 09:18 | Electrocardiograph Report ---
[facility] Test Date: 2021-10-01 Test Time: 20:23:32 Pat Name: CARLYN GUZMAN Department: Room: Gender: M [employer] Professor: [id number] : 1940 Requested By: ROSE FIGUEROA Order Number: [id number] Reading MD: Ham Okeefe Measurements Intervals [place] Rate: 80 P: 77 MS: 171 QRS: -67 QRSD: 102 T: 74 QT: 371 QTc: 429 Interpretive Statements Sinus rhythm Ventricular premature complex Left axis deviation Incomplete right bundle branch block Compared to ECG 09/17/2021 07:44:05 Ventricular ectopy is now evident Electronically Signed On 10-02-2021 9:18:20 EDT by Ham Okeefe
== END 2021-10-02 03:15 | disposition home or self-care (01) ==
LOC: ED 19:49
DX: R07.89 Other chest pain (principal); I26.99 Other pulmonary embolism without acute cor pulmonale; Z91.14 Patient's other noncompliance with medication regimen; Z76.0 Encounter for issue of repeat prescription; I10 Essential (primary) hypertension; M19.90 Unspecified osteoarthritis, unspecified site; J44.9 Chronic obstructive pulmonary disease, unspecified; F03.90 Unspecified dementia, unspecified severity, without behavioral disturbance, psychotic disturbance, mood disturbance, and anxiety; F17.200 Nicotine dependence, unspecified, uncomplicated
CPT/HCPCS: 36415; 71046; 80053; 84484; 85025; 93005; 99284